=== PATIENT | female | born 1965 | race Caucasian/White ===

== ENCOUNTER 2017-09-14 08:54 | Inpatient (IN) | payer OTHER ==
--- NOTE | 2017-09-14 13:58 | HP ---
COWS - Scale Resting Pulse: 1= [place] 81-100 Sweatin=Flushed/Facial Moisture Restless Observation: 1= Difficult to Sit Still Pupil Size: 0= Normal to Room Light Bone or Joint Aches: 2= Severe Diffuse Aches Runny Nose/ Eye Tearin= Runny Nose/Eyes GI Upset > 30mins: 2= Nausea/Diarrhea Tremor Observation: 2= Slight Tremor Visible Yawning Observation: 2= >3x During Session Anxiety or Irritability: 2=Irritable/Anxious Goose Flesh Skin: 3=Piloerection COWS Score: 19 CIWA Score - CIWA Score Nausea/Vomitin-Mild Nausea/No Vomiting Muscle Tremors: 4-Moderate,w/Arms Extend Anxiety: 4-Mod. Anxious/Guarded Agitation: 4-Moderately Restless Paroxysmal Sweats: 3 Orientation: 0-Oriented Tacttile Disturbances: 0-None Auditory Disturbances: 0-None Visual Disturbances: 0-None Headache: 0-None Present CIWA-Ar Total Score: 16 Admission ROS S - HPI Chief Complaint: I was clean for 22yrs and relapsed and need help. Allergies/Adverse Reactions: Allergies Allergy/AdvReac Type Severity Reaction Status Date / Time No Known Allergies Allergy Verified 09/14/17 13:11 History of Present Illness: pt is a 52yr old female with a long history of being clean from drugs until she recently relapsed using heroin and percocet looking for detox for treatment. Exam Limitations: No Limitations - Ebola screening Have you traveled outside of the country in the last 21 days: No (N) Have you had contact with anyone from an Ebola affected area: No Have you been sick,other than usual withdrawal symptoms: No Do you have a fever: No - Review of Systems Constitutional: Chills, Diaphoresis, Loss of Appetite, Night Sweats, Changes in sleep, Unintentional Wgt. Loss EENT: reports: Tearing, Nose Congestion Respiratory: reports: No Symptoms reported Cardiac: reports: No Symptoms Reported GI: reports: Diarrhea, Nausea, Poor Appetite, Poor Fluid Intake, Indigestion : reports: No Symptoms Reported Musculoskeletal: reports: Back Pain, Muscle Pain Integumentary: reports: Flushing, Sweating Neuro: reports: Headache, Tingling, Tremors Endocrine: reports: Excessive Sweating, Flushing, Intolerance to Cold, Intolerance to Heat Hematology: reports: No Symptoms Reported Psychiatric: reports: Judgement Intact, Mood/Affect Appropiate, Orientated x3, Agitated, Anxious Other Systems: Reviewed and Negative Patient History - Patient Medical History Hx Anemia: No Hx Asthma: No Hx Chronic Obstructive Pulmonary Disease (COPD): Yes (not on meds.) Hx Cancer: No Hx Cardiac Disorders: No Hx Congestive Heart Failure: No Hx Hypertension: No Hx Hypercholesterolemia: No Hx Pacemaker: No HX Cerebrovascular Accident: No Hx Seizures: Yes (drug related seizures last in 2014) Hx Dementia: No Hx Diabetes: No Hx Gastrointestinal Disorders: No Hx Liver Disease: No Hx Genitourinary Disorders: No Hx Sexually Transmitted Disorders: No Hx Renal Disease (ESRD): No Hx Thyroid Disease: No Hx Human Immunodeficiency Virus (HIV): Yes (since 1993) Hx Hepatitis C: No Hx Depression: Yes Hx Suicide Attempt: Yes (Tried to jump out a window 22 years ago.) Hx Bipolar Disorder: Yes Hx Schizophrenia: No Other Medical History: anxiety - Patient Surgical History Past Surgical History: Yes Hx Genitourinary Surgery: Yes (Total hysterectomy Cervical ca in 2013) - PPD History Previous Implant?: Yes Documented Results: Negative w/o proof Implanted On Prior [facility] Admission?: No PPD to be Administered?: Yes - Reproductive History Patient is a Female of Child Bearing Age (11 -55 yrs old): Yes Patient : No - Smoking Cessation Smoking history: Current every day smoker Have you smoked in the past 12 months: Yes Aproximately how many cigarettes per day: 20 Hx Chewing Tobacco Use: No Initiated information on smoking cessation: Yes 'Breaking Loose' booklet given: 09/14/17 - Substance & Tx. History Hx Alcohol Use: No Hx Substance Use: Yes Substance Use Type: Heroin, Opiates Hx Substance Use Treatment: Yes (last detox 1993) - Substances Abused Heroin Route: Inhalation Frequency: Daily Amount used: 4-5 bags Age of first use: 20 Date of Last Use: 09/13/17 percocet Route: Oral Frequency: Daily Amount used: 8-10 20mg pills Age of first use: 41 Date of Last Use: 09/12/17 Family Disease History - Family Disease History Family Disease History: CA: Brother (lung CA), Sister Admission Physical Exam BHS - Vital Signs Vital Signs: Vital Signs - 24 hr 09/14/17 11:13 Temperature 97.9 F Pulse Rate 90 Respiratory 20 Rate Blood Pressure 118/71 - Physical General Appearance: Yes: Appropriately Dressed, Moderate Distress, Thin, Tremorous, Irritable, Sweating, Anxious HEENTM: Yes: Normal Voice, Nasal Congestion, Rhinorrhea Respiratory: Yes: Lungs Clear, Normal Breath Sounds, No Respiratory Distress Neck: Yes: No masses,lesions,Nodules Breast: Yes: Within Normal Limits Cardiology: Yes: Regular Rhythm, Regular Rate, S1, S2 Abdominal: Yes: Normal Bowel Sounds, Non Tender, Soft Genitourinary: Yes: Within Normal Limits Back: Yes: Normal Inspection Musculoskeletal: Yes: Back pain, Muscle Pain Extremities: Yes: Normal Capillary Refill, Non-Tender, Tremors Neurological: Yes: Fully Oriented, Alert, Normal Response Integumentary: Yes: Normal Color, Diaphoresis Lymphatic: Yes: Within Normal Limits - Diagnostic (1) Opioid dependence with withdrawal Current Visit: Yes Status: Chronic (2) Nicotine dependence Current Visit: Yes Status: Chronic Qualifiers: Nicotine product type: cigarettes Substance use status: uncomplicated Qualified Code(s): F17.210 - Nicotine dependence, cigarettes, uncomplicated Cleared for Admission [facility] - Detox or Rehab [facility] Level of Care: Medically Managed Detox Regimen/Protocol: Methadone/Valium [facility] Breath Alcohol Content Breath Alcohol Content: 0 Urine Pregancy Test - Result Urine Test Results: Negative- NO Line Present Urine Drug Screen - Results Drug Screen Negative: No Urine Drug Screen Results: OPI-Opiates, BZO-Benzodiazepines, OXY-Oxycodone
[2017-09-14] MEDS ORDERED: LOPERAMIDE HCL 2 MG CAPSULE PO PRN (14:06)
[2017-09-14] MEDS ORDERED: guaiFENesin/D-METHORPHAN HB 10 ML UNIT-DOSE CUPS PO PRN (14:06)
[2017-09-14] MEDS ORDERED: MAGNESIUM CITRATE 300 ML BOTTLE PO PRN (14:06)
[2017-09-14] MEDS ORDERED: hydrOXYzine PAMOATE 50 MG CAPSULE (FP) PO PRN (14:06)
[2017-09-14] MEDS ORDERED: MENTHOL/PHENOL 1 EACH UD MM PRN (14:06)
[2017-09-14] MEDS ORDERED: P-EPHED 60MG/TRIPROLIDI 2.5MG TABLET PO PRN (14:06)
[2017-09-14] MEDS ORDERED: MAG HYDROX/AL HYDROX/SIMETH 30 ML UNIT-DOSE CUP PO PRN (14:06)
[2017-09-14] MEDS ORDERED: NICOTINE POLACRILEX 2 MG GUM BUC PRN (14:06)
[2017-09-14] MEDS ORDERED: MAGNESIUM HYDROX 2400MG/30ML ORAL SUSPENSION 30 ML CUP PO PRN (14:06)
[2017-09-14] MEDS ORDERED: diazePAM 5 MG TABLET PO ONE (14:13)
[2017-09-14] MEDS ORDERED: METHADONE HCL 10 MG TABLET (FOR DETOX USE ONLY) PO ONE ×2 (14:17→23:00)
[2017-09-14] MEDS: diazePAM 5 MG TABLET PO PRN (19:54)
[2017-09-14] MEDS: THIAMINE HCL 100 MG TABLET (FP) PO SCH (22:17)
[2017-09-14] MEDS: PREGABALIN 100 MG CAPSULE PO SCH (22:17)
[2017-09-14] MEDS: diazePAM 5 MG TABLET PO SCH (22:17)
[2017-09-14 22:57] LABS: URINE APPEARANCE CLOUDY; URINE BILIRUBIN NEGATIVE (NEGATIVE); URINE BLOOD NEGATIVE (NEGATIVE); URINE COLOR AMBER; URINE GLUCOSE (UA) NEGATIVE (NEGATIVE); URINE KETONE NEGATIVE (NEGATIVE); URINE LEUK ESTERASE TRACE (NEGATIVE); URINE NITRITE NEGATIVE (NEGATIVE); URINE PROTEIN NEGATIVE (NEGATIVE); URINE UROBILINOGEN NEGATIVE mg/dL (0.2-1.0)
[2017-09-14 23:08] LABS: EPI CELLS RARE /HPF (FEW); URINE MUCUS RARE
[2017-09-15] MEDS: diazePAM 5 MG TABLET PO SCH ×3 (06:30→22:09)
[2017-09-15] MEDS: DARUNAVIR ETHANOLATE 800 MG TAB PO SCH (08:07)
[2017-09-15] MEDS: RITONAVIR 100 MG TABLET PO SCH (08:08)
[2017-09-15 09:56] LABS: BASO % 0.5 % (0-2.0); EOS % 1.3 % (0-4.5); HEMATOCRIT 39.8 % (32.4-45.2); LYMPH % 38.4 % (8-40); MCH 30.7 pg (25.7-33.7); MCHC 32.7 g/dl (32.0-36.0); MEAN CELL VOLUME 93.9 fl (80-96); MEAN PLT VOLUME 11.4 fl (7.5-11.1); MONO % 10.6 % (3.8-10.2); NEUT % 49.2 % (42.8-82.8); PLATELET COUNT 169 K/MM3 (134-434); RBC 4.23 M/mm3 (3.60-5.2); RDW 14.4 % (11.6-15.6)
[2017-09-15 09:59] LABS: ALBUMIN 3.6 g/dl (3.4-5.0); ANION GAP 5 (8-16); BLOOD UREA NITROGEN 14 mg/dL (7-18); CALCIUM 8.3 mg/dL (8.5-10.1); CHLORIDE 107 mmol/L (98-107); CO2 29 mmol/L (21-32); GLUCOSE,RANDOM 131 mg/dL (74-106); POTASSIUM 3.6 mmol/L (3.5-5.1); SODIUM 141 mmol/L (136-145)
[2017-09-15] MEDS ORDERED: DARUNAVIR ETHANOLATE 800 MG TAB PO SCH (10:00)
[2017-09-15] MEDS ORDERED: METHADONE HCL 10 MG TABLET (FOR DETOX USE ONLY) PO SCH (10:00)
[2017-09-15 10:02] LABS: ALK PHOS 95 U/L (45-117); BILIRUBIN,TOTAL 0.3 mg/dL (0.2-1.0); SGOT/AST 22 U/L (15-37); SGPT/ALT 27 U/L (12-78); TOT PROT 7.6 g/dl (6.4-8.2)
[2017-09-15 10:24] LABS: INR 1.01 (0.82-1.09); PROTHROMBIN TIME (PATIENT) 11.4 SEC (9.98-11.88)
[2017-09-15] MEDS: diazePAM 5 MG TABLET PO PRN ×2 (10:44→17:42)
[2017-09-15] MEDS: PRENATAL VITAMINS W/ FOLIC ACID TABLET (FP) PO SCH (10:44)
[2017-09-15] MEDS: HYDROXYCHLOROQUINE SO4 200 MG TABLET (FP) PO SCH (10:44)
[2017-09-15] MEDS: NICOTINE 21 MG/24 HOURS TOPICAL PATCH TD SCH (10:45)
[2017-09-15] MEDS: PREGABALIN 100 MG CAPSULE PO SCH ×2 (10:46→22:09)
[2017-09-15] MEDS: EMTRICITABINE 200MG/TENOFOVIR 300MG PO SCH (10:46)
--- NOTE | 2017-09-15 11:44 | PN ---
S CIWA - CIWA Score Nausea/Vomitin-Mild Nausea/No Vomiting Muscle Tremors: 3 Anxiety: 3 Agitation: 3 Paroxysmal Sweats: 3 Orientation: 1-Uncertain about Date Tacttile Disturbances: 0-None Auditory Disturbances: 0-None Visual Disturbances: 0-None Headache: 0-None Present CIWA-Ar Total Score: 14 BHS COWS - Scale Resting Pulse: 0= [place] 80 or Below Sweatin=Flushed/Facial Moisture Restless Observation: 1= Difficult to Sit Still Pupil Size: 0= Normal to Room Light Bone or Joint Aches: 1= Mild Discomfort Runny Nose/ Eye Tearin= Runny Nose/Eyes GI Upset > 30mins: 2= Nausea/Diarrhea Tremor Observation of Outstretched Hands: 2= Slight Tremor Visible Yawning Observation: 1= 1-2x During Session Anxiety or Irritability: 2=Irritable/Anxious Goose Flesh Skin: 0=Smooth Skin COWS Score: 13 S Progress Note (SOAP) Subjective: Anxiety,tremors,sweating,interrupted sleep,restless Objective: 09/15/17 11:41 Vital Signs - 8 hr 09/15/17 09/15/17 06:06 10:16 Temperature 97.9 F 97.3 F L Pulse Rate 61 63 Respiratory 16 18 Rate Blood Pressure 135/88 134/86 Laboratory Tests 09/14/17 09/15/17 09/15/17 Unknown 06:10 06:10 WBC 6.0 RBC 4.23 Hgb 13.0 Hct 39.8 MCV 93.9 MCH 30.7 MCHC 32.7 RDW 14.4 Plt Count 169 MPV 11.4 H Neutrophils % 49.2 Lymphocytes % 38.4 Monocytes % 10.6 H Eosinophils % 1.3 Basophils % 0.5 PT with INR INR Sodium 141 Potassium 3.6 Chloride 107 Carbon Dioxide 29 Anion Gap 5 L BUN 14 Creatinine 1.0 Creat Clearance w eGFR 57.78 Random Glucose 131 H Calcium 8.3 L Total Bilirubin 0.3 AST 22 ALT 27 Alkaline Phosphatase 95 Total Protein 7.6 Albumin 3.6 Urine Color Priscila Urine Appearance Cloudy Urine pH 5.0 Ur Specific [place] 1.024 Urine Protein Negative Urine Glucose (UA) Negative Urine Ketones Negative Urine Blood Negative Urine Nitrite Negative Urine Bilirubin Negative Urine Urobilinogen Negative Ur Leukocyte Esterase Trace Urine WBC (Auto) 14 Urine RBC (Auto) 2 Ur Epithelial Cells Rare Urine Mucus Rare 09/15/17 07:50 WBC RBC Hgb Hct MCV MCH MCHC RDW Plt Count MPV Neutrophils % Lymphocytes % Monocytes % Eosinophils % Basophils % PT with INR 11.40 INR 1.01 Sodium Potassium Chloride Carbon Dioxide Anion Gap BUN Creatinine Creat Clearance w eGFR Random Glucose Calcium Total Bilirubin AST ALT Alkaline Phosphatase Total Protein Albumin Urine Color Urine Appearance Urine pH Ur Specific [place] Urine Protein Urine Glucose (UA) Urine Ketones Urine Blood Urine Nitrite Urine Bilirubin Urine Urobilinogen Ur Leukocyte Esterase Urine WBC (Auto) Urine RBC (Auto) Ur Epithelial Cells Urine Mucus labs noted Assessment: 09/15/17 11:44 Withdrawal sx. Plan: Continue detox
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
[2017-09-15] MEDS: hydrOXYzine PAMOATE 50 MG CAPSULE (FP) PO PRN (19:57)
[2017-09-15] MEDS: THIAMINE HCL 100 MG TABLET (FP) PO SCH (22:09)
[2017-09-16] MEDS: diazePAM 5 MG TABLET PO PRN (07:04)
--- NOTE | 2017-09-16 09:57 | PN ---
[facility] CIWA - CIWA Score Nausea/Vomitin-No Nausea/No Vomiting Muscle Tremors: 3 Anxiety: 3 Agitation: 3 Paroxysmal Sweats: 1-Minimal Palms Moist Orientation: 0-Oriented Tacttile Disturbances: 0-None Auditory Disturbances: 0-None Visual Disturbances: 0-None Headache: 0-None Present CIWA-Ar Total Score: 10 BHS COWS - Scale Resting Pulse: 0= [place] 80 or Below Sweatin= Chills/Flushing Restless Observation: 1= Difficult to Sit Still Pupil Size: 0= Normal to Room Light Bone or Joint Aches: 1= Mild Discomfort Runny Nose/ Eye Tearin= Runny Nose/Eyes GI Upset > 30mins: 1= Stomach Cramp Tremor Observation of Outstretched Hands: 2= Slight Tremor Visible Yawning Observation: 0= None Anxiety or Irritability: 2=Irritable/Anxious Goose Flesh Skin: 0=Smooth Skin COWS Score: 10 S Progress Note (SOAP) Subjective: tremor anxiety restlessness general body ache Objective: 09/16/17 09:56 Vital Signs Temperature 97.8 F 09/16/17 06:00 Pulse Rate 65 09/16/17 06:00 Respiratory Rate 16 09/16/17 06:00 Blood Pressure 122/81 09/16/17 06:00 O2 Sat by Pulse Oximetry (%) Laboratory Last Values WBC 6.0 K/mm3 (4.0-10.0) 09/15/17 06:10 RBC 4.23 M/mm3 (3.60-5.2) 09/15/17 06:10 Hgb 13.0 GM/dL (10.7-15.3) 09/15/17 06:10 Hct 39.8 % (32.4-45.2) 09/15/17 06:10 MCV 93.9 fl (80-96) 09/15/17 06:10 MCH 30.7 pg (25.7-33.7) 09/15/17 06:10 MCHC 32.7 g/dl (32.0-36.0) 09/15/17 06:10 RDW 14.4 % (11.6-15.6) 09/15/17 06:10 Plt Count 169 K/MM3 (134-434) 09/15/17 06:10 MPV 11.4 fl (7.5-11.1) H 09/15/17 06:10 Neutrophils % 49.2 % (42.8-82.8) 09/15/17 06:10 Lymphocytes % 38.4 % (8-40) 09/15/17 06:10 Monocytes % 10.6 % (3.8-10.2) H 09/15/17 06:10 Eosinophils % 1.3 % (0-4.5) 09/15/17 06:10 Basophils % 0.5 % (0-2.0) 09/15/17 06:10 PT with INR 11.40 SEC (9.98-11.88) 09/15/17 07:50 INR 1.01 (0.82-1.09) 09/15/17 07:50 Sodium 141 mmol/L (136-145) 09/15/17 06:10 Potassium 3.6 mmol/L (3.5-5.1) 09/15/17 06:10 Chloride 107 mmol/L (98-107) 09/15/17 06:10 Carbon Dioxide 29 mmol/L (21-32) 09/15/17 06:10 Anion Gap 5 (8-16) L 09/15/17 06:10 BUN 14 mg/dL (7-18) 09/15/17 06:10 Creatinine 1.0 mg/dL (0.55-1.02) 09/15/17 06:10 Creat Clearance w eGFR 57.78 (>60) 09/15/17 06:10 Random Glucose 131 mg/dL (74-106) H 09/15/17 06:10 Calcium 8.3 mg/dL (8.5-10.1) L 09/15/17 06:10 Total Bilirubin 0.3 mg/dL (0.2-1.0) 09/15/17 06:10 AST 22 U/L (15-37) 09/15/17 06:10 ALT 27 U/L (12-78) 09/15/17 06:10 Alkaline Phosphatase 95 U/L (45-117) 09/15/17 06:10 Total Protein 7.6 g/dl (6.4-8.2) 09/15/17 06:10 Albumin 3.6 g/dl (3.4-5.0) 09/15/17 06:10 Urine Color Priscila 09/14/17 Unknown Urine Appearance Cloudy 09/14/17 Unknown Urine pH 5.0 (5.0-8.0) 09/14/17 Unknown Ur Specific [place] 1.024 (1.001-1.035) 09/14/17 Unknown Urine Protein Negative (NEGATIVE) 09/14/17 Unknown Urine Glucose (UA) Negative (NEGATIVE) 09/14/17 Unknown Urine Ketones Negative (NEGATIVE) 09/14/17 Unknown Urine Blood Negative (NEGATIVE) 09/14/17 Unknown Urine Nitrite Negative (NEGATIVE) 09/14/17 Unknown Urine Bilirubin Negative (NEGATIVE) 09/14/17 Unknown Urine Urobilinogen Negative mg/dL (0.2-1.0) 09/14/17 Unknown Ur Leukocyte Esterase Trace (NEGATIVE) 09/14/17 Unknown Urine WBC (Auto) 14 /hpf (3-5) 09/14/17 Unknown Urine RBC (Auto) 2 /hpf (0-3) 09/14/17 Unknown Ur Epithelial Cells Rare /HPF (FEW) 09/14/17 Unknown Urine Mucus Rare 09/14/17 Unknown RPR Titer Nonreactive (NONREACTIVE) 09/15/17 06:10 lab noted Assessment: 09/16/17 09:56 withdrawal sx Plan: continue detox
[2017-09-16] MEDS: hydrOXYzine PAMOATE 50 MG CAPSULE (FP) PO PRN ×2 (10:17→18:11)
[2017-09-16] MEDS: METHADONE HCL 5 MG TABLET (FOR DETOX USE ONLY) PO SCH (10:17)
[2017-09-16] MEDS: PRENATAL VITAMINS W/ FOLIC ACID TABLET (FP) PO SCH (10:18)
[2017-09-16] MEDS: diazePAM 5 MG TABLET PO SCH ×2 (10:18→22:28)
[2017-09-16] MEDS: IBUPROFEN 400 MG TABLET (FP) PO PRN ×2 (10:18→18:11)
[2017-09-16] MEDS: PREGABALIN 100 MG CAPSULE PO SCH ×2 (10:18→22:28)
[2017-09-16] MEDS: NICOTINE 21 MG/24 HOURS TOPICAL PATCH TD SCH (10:19)
[2017-09-16] MEDS: RITONAVIR 100 MG TABLET PO SCH (10:20)
[2017-09-16] MEDS: DARUNAVIR ETHANOLATE 800 MG TAB PO SCH (10:20)
[2017-09-16] MEDS: HYDROXYCHLOROQUINE SO4 200 MG TABLET (FP) PO SCH (10:20)
[2017-09-16] MEDS: EMTRICITABINE 200MG/TENOFOVIR 300MG PO SCH (10:21)
--- NOTE | 2017-09-16 12:59 | EKG ---
Test Reason : Blood Pressure : / mmHG Vent. Rate : 065 BPM Atrial Rate : 065 BPM P-R Int : 180 ms QRS Dur : 096 ms QT Int : 426 ms P-R-T Axes : 072 067 067 degrees QTc Int : 443 ms NORMAL SINUS RHYTHM MODERATE VOLTAGE CRITERIA FOR LVH, MAY BE NORMAL VARIANT BORDERLINE ECG WHEN COMPARED WITH ECG OF 14-SEP-2017 15:35, LEFT POSTERIOR FASCICULAR BLOCK IS NO LONGER PRESENT ST NO LONGER DEPRESSED IN INFERIOR LEADS T WAVE INVERSION NO LONGER EVIDENT IN INFERIOR LEADS Confirmed by Jaguar Pozo ([id number]) on 09/16/2017 12:58:37 PM Referred By: Confirmed By:Jaguar Pozo
[2017-09-16] MEDS: THIAMINE HCL 100 MG TABLET (FP) PO SCH (22:28)
[2017-09-17] MEDS: diazePAM 5 MG TABLET PO PRN (05:49)
[2017-09-17] MEDS: IBUPROFEN 400 MG TABLET (FP) PO PRN (05:49)
[2017-09-17] MEDS: METHADONE HCL 5 MG TABLET (FOR DETOX USE ONLY) PO SCH (09:19)
[2017-09-17] MEDS: RITONAVIR 100 MG TABLET PO SCH (09:20)
[2017-09-17] MEDS: HYDROXYCHLOROQUINE SO4 200 MG TABLET (FP) PO SCH (09:20)
[2017-09-17] MEDS: DARUNAVIR ETHANOLATE 800 MG TAB PO SCH (09:20)
[2017-09-17] MEDS: EMTRICITABINE 200MG/TENOFOVIR 300MG PO SCH (09:21)
[2017-09-17] MEDS: diazePAM 5 MG TABLET PO SCH ×2 (09:21→22:14)
--- NOTE | 2017-09-17 10:06 | PN ---
BHS Progress Note (SOAP) Subjective: anxious tearful co aches Objective: 09/17/17 10:05 Laboratory Tests 09/14/17 09/15/17 09/15/17 Unknown 06:10 06:10 WBC RBC Hgb Hct MCV MCH MCHC RDW Plt Count MPV Neutrophils % Lymphocytes % Monocytes % Eosinophils % Basophils % PT with INR INR Sodium 141 Potassium 3.6 Chloride 107 Carbon Dioxide 29 Anion Gap 5 L BUN 14 Creatinine 1.0 Creat Clearance w eGFR 57.78 Random Glucose 131 H Calcium 8.3 L Total Bilirubin 0.3 AST 22 ALT 27 Alkaline Phosphatase 95 Total Protein 7.6 Albumin 3.6 Urine Color Priscila Urine Appearance Cloudy Urine pH 5.0 Ur Specific [place] 1.024 Urine Protein Negative Urine Glucose (UA) Negative Urine Ketones Negative Urine Blood Negative Urine Nitrite Negative Urine Bilirubin Negative Urine Urobilinogen Negative Ur Leukocyte Esterase Trace Urine WBC (Auto) 14 Urine RBC (Auto) 2 Ur Epithelial Cells Rare Urine Mucus Rare RPR Titer Nonreactive 09/15/17 09/15/17 06:10 07:50 WBC 6.0 RBC 4.23 Hgb 13.0 Hct 39.8 MCV 93.9 MCH 30.7 MCHC 32.7 RDW 14.4 Plt Count 169 MPV 11.4 H Neutrophils % 49.2 Lymphocytes % 38.4 Monocytes % 10.6 H Eosinophils % 1.3 Basophils % 0.5 PT with INR 11.40 INR 1.01 Sodium Potassium Chloride Carbon Dioxide Anion Gap BUN Creatinine Creat Clearance w eGFR Random Glucose Calcium Total Bilirubin AST ALT Alkaline Phosphatase Total Protein Albumin Urine Color Urine Appearance Urine pH Ur Specific [place] Urine Protein Urine Glucose (UA) Urine Ketones Urine Blood Urine Nitrite Urine Bilirubin Urine Urobilinogen Ur Leukocyte Esterase Urine WBC (Auto) Urine RBC (Auto) Ur Epithelial Cells Urine Mucus RPR Titer Vital Signs - 24 hr 09/16/17 09/16/17 09/16/17 10:19 14:11 17:24 Temperature 98.2 F 98.1 F 98.4 F Pulse Rate 74 76 69 Respiratory 18 18 18 Rate Blood Pressure 123/74 123/61 113/67 09/16/17 09/17/17 09/17/17 23:06 00:29 06:20 Temperature 97.7 F 98.2 F Pulse Rate 69 73 Respiratory 18 18 19 Rate Blood Pressure 120/74 142/90 09/17/17 09/17/17 09:18 09:28 Temperature 98.1 F Pulse Rate 73 Respiratory 16 Rate Blood Pressure 122/51 112/62 Assessment: 09/17/17 10:05 opiate dep withdrawal Plan: cont detox protocol
[2017-09-17] MEDS: PRENATAL VITAMINS W/ FOLIC ACID TABLET (FP) PO SCH (11:46)
[2017-09-17] MEDS: NICOTINE 21 MG/24 HOURS TOPICAL PATCH TD SCH (11:46)
[2017-09-17] MEDS: PREGABALIN 100 MG CAPSULE PO SCH ×2 (11:46→22:14)
--- NOTE | 2017-09-17 21:58 | EKG ---
Test Reason : Blood Pressure : / mmHG Vent. Rate : 080 BPM Atrial Rate : 080 BPM P-R Int : 162 ms QRS Dur : 090 ms QT Int : 404 ms P-R-T Axes : 000 130 193 degrees QTc Int : 465 ms NORMAL SINUS RHYTHM LEFT POSTERIOR FASCICULAR BLOCK MINIMAL VOLTAGE CRITERIA FOR LVH, MAY BE NORMAL VARIANT PROLONGED QT ABNORMAL ECG NO PREVIOUS ECGS AVAILABLE Confirmed by RADHAMES WEINBERG MD ([id number]) on 09/17/2017 9:57:47 PM Referred By: Confirmed By:RADHAMES WEINBERG MD
[2017-09-17] MEDS: THIAMINE HCL 100 MG TABLET (FP) PO SCH (22:14)
[2017-09-18] MEDS: hydrOXYzine PAMOATE 50 MG CAPSULE (FP) PO PRN ×3 (01:19→15:11)
[2017-09-18] MEDS: ACETAMINOPHEN 325 MG TABLET (FP) PO PRN (07:44)
[2017-09-18] MEDS ORDERED: diazePAM 5 MG TABLET PO SCH (10:00)
[2017-09-18] MEDS ORDERED: METHADONE HCL 10 MG TABLET (FOR DETOX USE ONLY) PO SCH (10:00)
[2017-09-18] MEDS: NICOTINE 21 MG/24 HOURS TOPICAL PATCH TD SCH ×2 (10:00→10:31)
[2017-09-18] MEDS: PRENATAL VITAMINS W/ FOLIC ACID TABLET (FP) PO SCH (10:29)
[2017-09-18] MEDS: DARUNAVIR ETHANOLATE 800 MG TAB PO SCH (10:30)
[2017-09-18] MEDS: HYDROXYCHLOROQUINE SO4 200 MG TABLET (FP) PO SCH (10:30)
[2017-09-18] MEDS: PREGABALIN 100 MG CAPSULE PO SCH ×2 (10:30→22:23)
[2017-09-18] MEDS: RITONAVIR 100 MG TABLET PO SCH (10:31)
[2017-09-18] MEDS: EMTRICITABINE 200MG/TENOFOVIR 300MG PO SCH (10:48)
--- NOTE | 2017-09-18 11:28 | PN ---
BHS Progress Note (SOAP) Subjective: ONGOING SX INCLUDE POOR SLEEP, GEN DISCOMFORT, ACHINESS, SADNESS REQ TO SEE PSYCH Objective: 09/18/17 11:27 Laboratory Tests 09/14/17 09/15/17 09/15/17 Unknown 06:10 06:10 WBC RBC Hgb Hct MCV MCH MCHC RDW Plt Count MPV Neutrophils % Lymphocytes % Monocytes % Eosinophils % Basophils % PT with INR INR Sodium 141 Potassium 3.6 Chloride 107 Carbon Dioxide 29 Anion Gap 5 L BUN 14 Creatinine 1.0 Creat Clearance w eGFR 57.78 Random Glucose 131 H Calcium 8.3 L Total Bilirubin 0.3 AST 22 ALT 27 Alkaline Phosphatase 95 Total Protein 7.6 Albumin 3.6 Urine Color Priscila Urine Appearance Cloudy Urine pH 5.0 Ur Specific [place] 1.024 Urine Protein Negative Urine Glucose (UA) Negative Urine Ketones Negative Urine Blood Negative Urine Nitrite Negative Urine Bilirubin Negative Urine Urobilinogen Negative Ur Leukocyte Esterase Trace Urine WBC (Auto) 14 Urine RBC (Auto) 2 Ur Epithelial Cells Rare Urine Mucus Rare RPR Titer Nonreactive 09/15/17 09/15/17 06:10 07:50 WBC 6.0 RBC 4.23 Hgb 13.0 Hct 39.8 MCV 93.9 MCH 30.7 MCHC 32.7 RDW 14.4 Plt Count 169 MPV 11.4 H Neutrophils % 49.2 Lymphocytes % 38.4 Monocytes % 10.6 H Eosinophils % 1.3 Basophils % 0.5 PT with INR 11.40 INR 1.01 Sodium Potassium Chloride Carbon Dioxide Anion Gap BUN Creatinine Creat Clearance w eGFR Random Glucose Calcium Total Bilirubin AST ALT Alkaline Phosphatase Total Protein Albumin Urine Color Urine Appearance Urine pH Ur Specific [place] Urine Protein Urine Glucose (UA) Urine Ketones Urine Blood Urine Nitrite Urine Bilirubin Urine Urobilinogen Ur Leukocyte Esterase Urine WBC (Auto) Urine RBC (Auto) Ur Epithelial Cells Urine Mucus RPR Titer Vital Signs - 24 hr 09/17/17 09/17/17 09/17/17 14:32 17:52 22:55 Temperature 98.1 F 97.9 F 98.6 F Pulse Rate 79 81 74 Respiratory 18 20 18 Rate Blood Pressure 124/79 112/75 113/70 09/18/17 09/18/17 09/18/17 00:30 03:30 06:00 Temperature 97.7 F Pulse Rate 72 Respiratory 18 18 18 Rate Blood Pressure 123/77 09/18/17 09:28 Temperature 96.8 F L Pulse Rate 80 Respiratory 16 Rate Blood Pressure 119/70 Assessment: 09/18/17 11:27 ONGOING WITHDRAWAL DEPRESSION Plan: CONTINUE DETOX PROTOCOL PSYCH EVAL RE ENTERED
--- NOTE | 2017-09-18 16:08 | PN ---
Psychiatric Progress Note Vital Signs: Vital Signs Period Temp Pulse Resp BP Sys/Rodriguez Pulse Ox Last 24 Hr 96.8 F-98.6 F 72-81 16-20 112-123/70-77 Date of Session: 09/18/17 Chief Complaint:: [facility] HPI: Pt. admitted to [facility] detox for opiate withdrawal/dependence. Pt. currently c/ o increase anxiety and difficulty sleeping. ROS: Unremarkable Current Medications: Active Medications Generic Name Dose Route Start Last Admin Trade Name Freq PRN Reason Stop Dose Admin Acetaminophen 650 mg 09/14/17 14:06 09/18/17 07:44 Tylenol - PO 650 mg Q4H PRN Administration FEVER Al Hydroxide/Mg Hydroxide 30 ml 09/14/17 14:06 Mylanta Oral Suspension - PO Q6H PRN DYSPEPSIA Bupropion HCl 150 mg 09/15/17 11:15 09/18/17 10:31 Wellbutrin Xl - PO 150 mg DAILY WALLACE Administration Darunavir 800 mg 09/15/17 08:00 09/18/17 10:30 Prezista - PO 800 mg DAILY@0800 WALLACE Administration Emtricitabine/Tenofovir 1 tab 09/15/17 10:00 09/18/17 10:48 Truvada PO 1 tab DAILY WALLACE Administration Eucalyptus/Menthol/Phenol/Sorbitol 1 each 09/14/17 14:06 Cepastat Lozenge - MM Q4H PRN SORE THROAT Guaifenesin 10 ml 09/14/17 14:06 Robitussin Dm - PO Q6H PRN COUGH Hydroxychloroquine Sulfate 400 mg 09/15/17 10:00 09/18/17 10:30 Plaquenil - PO 400 mg DAILY WALLACE Administration Hydroxyzine Pamoate 50 mg 09/15/17 15:42 09/18/17 15:11 Vistaril - PO 50 mg Q6H PRN Administration ANXIETY Ibuprofen 400 mg 09/14/17 14:06 09/17/17 05:49 Motrin - PO 400 mg Q6H PRN Administration PAIN LEVEL 4-6 Loperamide HCl 4 mg 09/14/17 14:06 09/14/17 15:21 Imodium - PO 4 mg Q6H PRN Administration DIARRHEA Magnesium Citrate 300 ml 09/14/17 14:06 Citroma - PO Q48H PRN CONSTIPATION Magnesium Hydroxide 30 ml 09/14/17 14:06 Milk Of Magnesia - PO DAILY PRN CONSTIPATION Methadone HCl 5 mg 09/19/17 06:00 Dolophine - PO 09/19/17 06:01 DAILY@0600 WALLACE Nicotine 21 mg 09/15/17 10:00 09/18/17 10:00 Nicoderm Patch - TD Not Given DAILY WALLACE Nicotine Polacrilex 2 mg 09/14/17 14:06 Nicorette Gum - BUC Q2H PRN NICOTINE REPLACEMENT RX Pregabalin 300 mg 09/14/17 22:00 09/18/17 10:30 Lyrica - PO 09/21/17 21:59 300 mg BID WALLACE Administration Multivit/Folic Acid/Iron 1 tab 09/15/17 10:00 09/18/17 10:29 Vitamins (Sjr) - PO 1 tab DAILY WALLACE Administration Pseudoephedrine/Triprolidine 1 combo 09/14/17 14:06 Actifed - PO TID PRN NASAL CONGESTION Ritonavir 100 mg 09/15/17 08:00 09/18/17 10:31 Norvir - PO 100 mg DAILY@0800 WALLACE Administration Thiamine HCl 100 mg 09/14/17 22:00 09/17/17 22:14 Vitamin B1 - PO 100 mg HS WALLACE Administration Medication(s) Change(s): Yes. Will add seroquel 50mg qhs Current Side Effect: No Lab tests ordered: No Lab tests reviewed: Yes Provider note:: Handbook Writer approached patient concerning psychiatric reconsultation. Patient tearful and anxious concerning her discharge planning. Pt. anxious about possibly getting discharge from [facility] after informed by staff that she is on the list for rehab at [facility]. Pt. encouraged to remain positive. Psychoeducation provided. Pt. encouraged to take the medication vistaril for anxiety. Pt. also requesting a sleep aid. Pt. reports being prescribed seroquel 200mg qhs in February of 2017 but refused restarting seroquel several days ago. Pt. now agreeable to restart seroquel 50mg qhs for insomnia. Psychopharmacotherapy provided. Pt. satisified and receptive to feedback. Will continue to monitor. Total face to face time:: 25 Mental Status Exam - Mental Status Exam Alert and Oriented to: Time, Place, Person Cognitive Function: Good Patient Appearance: Well Groomed Mood: Anxious Affect: Mood Congruent Patient Behavior: Crying, Cooperative Speech Pattern: Appropriate, Delayed Voice Loudness: Normal Thought Process: Goal Oriented Thought Disorder: Not Present Hallucinations: Denies Suicidal Ideation: Denies Homicidal Ideation: Denies Insight/Judgement: Poor Sleep: Poorly Appetite: Fair Muscle strength/Tone: Normal Gait/Station: Normal Psychiatric Treatment Plan - Problem List (1) Opioid dependence with withdrawal Current Visit: Yes (2) MDD (major depressive disorder) Current Visit: Yes Comment: Self reports. (3) Nicotine dependence Current Visit: Yes Qualifiers: Nicotine product type: cigarettes Substance use status: uncomplicated Qualified Code(s): F17.210 - Nicotine dependence, cigarettes, uncomplicated (4) Anxiety disorder Current Visit: Yes (5) Insomnia Current Visit: Yes
[2017-09-18] MEDS: THIAMINE HCL 100 MG TABLET (FP) PO SCH (22:23)
[2017-09-18] MEDS: QUEtiapine FUMARATE 50 MG TABLET PO SCH (22:23)
[2017-09-19] MEDS: hydrOXYzine PAMOATE 50 MG CAPSULE (FP) PO PRN ×2 (01:47→10:35)
[2017-09-19] MEDS ORDERED: METHADONE HCL 5 MG TABLET (FOR DETOX USE ONLY) PO SCH (06:00)
--- NOTE | 2017-09-19 08:36 | DS ---
[facility] Detox Discharge Summary Admission Date: 09/14/17 Discharge Date: 09/19/17 - History Present History: Opioid Dependence - Physical Exam Results Vital Signs: Vital Signs Temperature 98.2 F 09/19/17 06:00 Pulse Rate 86 09/19/17 06:00 Respiratory Rate 16 09/19/17 06:00 Blood Pressure 107/64 09/19/17 06:00 O2 Sat by Pulse Oximetry (%) - Treatment Hospital Course: Detox Protocol Followed, Detoxed Safely, Responded well, Discharged Condition Good - Medication Discharge Medications: Ambulatory Orders Bupropion HCl [Bupropion HCl Sr] 150 mg PO DAILY 09/14/17 Clonazepam [Klonopin -] 0.5 mg PO BID 09/14/17 Darunavir Ethanolate [Prezista -] 800 mg PO DAILY 09/14/17 Emtricitabine/Tenofovir [Truvada] 1 tab PO DAILY 09/14/17 Hydroxychloroquine Sulfate [Plaquenil] 400 mg PO DAILY 09/14/17 Loperamide HCl [Loperamide] 2 mg PO QID PRN 09/14/17 Pregabalin [Lyrica -] 300 mg PO BID 09/14/17 Ritonavir [Norvir -] 100 mg PO DAILY 09/14/17 Tramadol HCl [Ultram] 50 mg PO Q6H PRN 09/14/17 - Diagnosis (1) Insomnia Current Visit: Yes Status: Chronic (2) Opioid dependence with withdrawal Current Visit: Yes Status: Chronic (3) Anxiety disorder Current Visit: Yes Status: Chronic Qualifiers: Anxiety disorder type: unspecified anxiety disorder Qualified Code(s): F41.9 - Anxiety disorder, unspecified (4) Nicotine dependence Current Visit: Yes Status: Chronic Qualifiers: Nicotine product type: cigarettes Substance use status: uncomplicated Qualified Code(s): F17.210 - Nicotine dependence, cigarettes, uncomplicated (5) HIV (human immunodeficiency virus infection) Current Visit: Yes Status: Chronic - AMA Did Patient Leave Against Medical Advice: No
[2017-09-19] MEDS: PREGABALIN 100 MG CAPSULE PO SCH ×2 (10:35→21:14)
[2017-09-19] MEDS: PRENATAL VITAMINS W/ FOLIC ACID TABLET (FP) PO SCH (10:35)
[2017-09-19] MEDS: HYDROXYCHLOROQUINE SO4 200 MG TABLET (FP) PO SCH (10:36)
[2017-09-19] MEDS: EMTRICITABINE 200MG/TENOFOVIR 300MG PO SCH (10:36)
[2017-09-19] MEDS: RITONAVIR 100 MG TABLET PO SCH (10:36)
[2017-09-19] MEDS: NICOTINE 21 MG/24 HOURS TOPICAL PATCH TD SCH (10:36)
[2017-09-19] MEDS: DARUNAVIR ETHANOLATE 800 MG TAB PO SCH (10:36)
[2017-09-19 14:11] VITALS: BMI 20.7
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
[2017-09-19] MEDS: QUEtiapine FUMARATE 50 MG TABLET PO SCH (21:14)
[2017-09-19] MEDS: THIAMINE HCL 100 MG TABLET (FP) PO SCH (21:14)
[2017-09-20] MEDS ORDERED: PT OWN MED DRAWER 7, Y5N ONE ×2 (09:07→10:57)
[2017-09-20] MEDS: PRENATAL VITAMINS W/ FOLIC ACID TABLET (FP) PO SCH (09:38)
[2017-09-20] MEDS: PREGABALIN 100 MG CAPSULE PO SCH ×2 (09:38→21:17)
[2017-09-20] MEDS: ACETAMINOPHEN 325 MG TABLET (FP) PO PRN (09:39)
[2017-09-20] MEDS: NICOTINE 21 MG/24 HOURS TOPICAL PATCH TD SCH (09:41)
[2017-09-20] MEDS: EMTRICITABINE 200MG/TENOFOVIR 300MG PO SCH (10:00)
[2017-09-20] MEDS: RITONAVIR 100 MG TABLET PO SCH (10:00)
[2017-09-20] MEDS: HYDROXYCHLOROQUINE SO4 200 MG TABLET (FP) PO SCH (10:00)
[2017-09-20] MEDS: DARUNAVIR ETHANOLATE 800 MG TAB PO SCH (10:00)
[2017-09-20] MEDS: hydrOXYzine PAMOATE 50 MG CAPSULE (FP) PO PRN ×2 (10:49→18:44)
[2017-09-20] MEDS ORDERED: FLU VACCINE QUAD 60 MCG/0.5 ML (MDV 17-18) IM ONE (12:00)
--- NOTE | 2017-09-20 13:09 | PN ---
[facility] Progress Note Note: new to rehab co withdrawal sx cows=[id number] will add clonidine x 1 neurontin 300mg tid flexeril 5mg tid prn
[2017-09-20] MEDS ORDERED: cloNIDine HCL 0.1 MG TABLET PO ONE (13:35)
[2017-09-20] MEDS: GABAPENTIN 300 MG CAPSULE (FP) PO SCH ×2 (14:15→21:18)
[2017-09-20] MEDS: CYCLOBENZAPRINE HCL 5 MG TABLET PO SCH ×2 (14:15→21:15)
[2017-09-20] MEDS: QUEtiapine FUMARATE 50 MG TABLET PO SCH (21:15)
[2017-09-20] MEDS: THIAMINE HCL 100 MG TABLET (FP) PO SCH (21:15)
[2017-09-21] MEDS: CYCLOBENZAPRINE HCL 5 MG TABLET PO SCH ×3 (06:37→21:14)
[2017-09-21] MEDS: GABAPENTIN 300 MG CAPSULE (FP) PO SCH ×2 (06:37→13:14)
[2017-09-21] MEDS ORDERED: PT OWN MED DRAWER 7, Y5N ONE (07:09)
[2017-09-21] MEDS: DARUNAVIR ETHANOLATE 800 MG TAB PO SCH (08:09)
[2017-09-21] MEDS: PRENATAL VITAMINS W/ FOLIC ACID TABLET (FP) PO SCH (10:04)
[2017-09-21] MEDS: PREGABALIN 100 MG CAPSULE PO SCH (10:04)
[2017-09-21] MEDS: HYDROXYCHLOROQUINE SO4 200 MG TABLET (FP) PO SCH (10:04)
[2017-09-21] MEDS: NICOTINE 21 MG/24 HOURS TOPICAL PATCH TD SCH (10:04)
[2017-09-21] MEDS: EMTRICITABINE 200MG/TENOFOVIR 300MG PO SCH (10:05)
[2017-09-21] MEDS: RITONAVIR 100 MG TABLET PO SCH (10:05)
[2017-09-21] MEDS: QUEtiapine FUMARATE 50 MG TABLET PO SCH (21:14)
[2017-09-21] MEDS: hydrOXYzine PAMOATE 50 MG CAPSULE (FP) PO PRN (21:14)
[2017-09-21] MEDS: THIAMINE HCL 100 MG TABLET (FP) PO SCH (21:14)
[2017-09-22] MEDS ORDERED: PT OWN MED DRAWER 7, Y5N ONE ×2 (03:10→08:06)
[2017-09-22] MEDS: CYCLOBENZAPRINE HCL 5 MG TABLET PO SCH ×3 (06:27→21:23)
[2017-09-22] MEDS: NICOTINE 21 MG/24 HOURS TOPICAL PATCH TD SCH (09:53)
[2017-09-22] MEDS: RITONAVIR 100 MG TABLET PO SCH (09:54)
[2017-09-22] MEDS: PRENATAL VITAMINS W/ FOLIC ACID TABLET (FP) PO SCH (09:57)
[2017-09-22] MEDS: HYDROXYCHLOROQUINE SO4 200 MG TABLET (FP) PO SCH (09:57)
[2017-09-22] MEDS: DARUNAVIR ETHANOLATE 800 MG TAB PO SCH (09:57)
[2017-09-22] MEDS: EMTRICITABINE 200MG/TENOFOVIR 300MG PO SCH (09:58)
[2017-09-22] MEDS: PREGABALIN 100 MG CAPSULE PO SCH ×2 (11:37→21:25)
[2017-09-22] MEDS: hydrOXYzine PAMOATE 50 MG CAPSULE (FP) PO PRN (19:13)
[2017-09-22] MEDS: THIAMINE HCL 100 MG TABLET (FP) PO SCH (21:23)
[2017-09-22] MEDS: QUEtiapine FUMARATE 50 MG TABLET PO SCH (21:24)
[2017-09-23] MEDS: CYCLOBENZAPRINE HCL 5 MG TABLET PO SCH ×3 (06:52→21:14)
[2017-09-23] MEDS: EMTRICITABINE 200MG/TENOFOVIR 300MG PO SCH (09:55)
[2017-09-23] MEDS: DARUNAVIR ETHANOLATE 800 MG TAB PO SCH (09:56)
[2017-09-23] MEDS: HYDROXYCHLOROQUINE SO4 200 MG TABLET (FP) PO SCH (09:56)
[2017-09-23] MEDS: PREGABALIN 100 MG CAPSULE PO SCH (09:56)
[2017-09-23] MEDS: PRENATAL VITAMINS W/ FOLIC ACID TABLET (FP) PO SCH (09:57)
[2017-09-23] MEDS: NICOTINE 21 MG/24 HOURS TOPICAL PATCH TD SCH (09:57)
[2017-09-23] MEDS: RITONAVIR 100 MG TABLET PO SCH (09:58)
[2017-09-23] MEDS: hydrOXYzine PAMOATE 50 MG CAPSULE (FP) PO PRN (19:07)
[2017-09-23] MEDS: THIAMINE HCL 100 MG TABLET (FP) PO SCH (21:14)
[2017-09-23] MEDS: QUEtiapine FUMARATE 50 MG TABLET PO SCH (21:14)
[2017-09-24] MEDS: CYCLOBENZAPRINE HCL 5 MG TABLET PO SCH ×3 (06:09→21:15)
[2017-09-24] MEDS: hydrOXYzine PAMOATE 50 MG CAPSULE (FP) PO PRN (06:09)
[2017-09-24] MEDS: EMTRICITABINE 200MG/TENOFOVIR 300MG PO SCH (09:50)
[2017-09-24] MEDS: PREGABALIN 100 MG CAPSULE PO SCH (09:51)
[2017-09-24] MEDS: HYDROXYCHLOROQUINE SO4 200 MG TABLET (FP) PO SCH (09:51)
[2017-09-24] MEDS: DARUNAVIR ETHANOLATE 800 MG TAB PO SCH (09:51)
[2017-09-24] MEDS: NICOTINE 21 MG/24 HOURS TOPICAL PATCH TD SCH (09:51)
[2017-09-24] MEDS: PRENATAL VITAMINS W/ FOLIC ACID TABLET (FP) PO SCH (09:51)
[2017-09-24] MEDS: RITONAVIR 100 MG TABLET PO SCH (09:52)
[2017-09-24] MEDS: CYPROHEPTADINE HCL 4 MG TABLET PO SCH ×2 (17:20→21:16)
[2017-09-24] MEDS: QUEtiapine FUMARATE 50 MG TABLET PO SCH (21:15)
[2017-09-24] MEDS: THIAMINE HCL 100 MG TABLET (FP) PO SCH (21:15)
[2017-09-25] MEDS ORDERED: PT OWN MED DRAWER 7, Y5N ONE ×2 (05:44→09:06)
[2017-09-25] MEDS: CYCLOBENZAPRINE HCL 5 MG TABLET PO SCH ×3 (06:52→21:19)
[2017-09-25] MEDS: CYPROHEPTADINE HCL 4 MG TABLET PO SCH ×3 (07:21→21:20)
[2017-09-25] MEDS: NICOTINE 21 MG/24 HOURS TOPICAL PATCH TD SCH (09:59)
[2017-09-25] MEDS: EMTRICITABINE 200MG/TENOFOVIR 300MG PO SCH (09:59)
[2017-09-25] MEDS: PRENATAL VITAMINS W/ FOLIC ACID TABLET (FP) PO SCH (10:00)
[2017-09-25] MEDS: RITONAVIR 100 MG TABLET PO SCH (10:00)
[2017-09-25] MEDS: DARUNAVIR ETHANOLATE 800 MG TAB PO SCH (10:00)
[2017-09-25] MEDS: HYDROXYCHLOROQUINE SO4 200 MG TABLET (FP) PO SCH (10:01)
[2017-09-25] MEDS: PREGABALIN 100 MG CAPSULE PO SCH (10:02)
[2017-09-25] MEDS: hydrOXYzine PAMOATE 50 MG CAPSULE (FP) PO PRN ×2 (13:54→23:45)
[2017-09-25] MEDS: QUEtiapine FUMARATE 50 MG TABLET PO SCH (21:19)
[2017-09-25] MEDS: THIAMINE HCL 100 MG TABLET (FP) PO SCH (21:19)
[2017-09-26] MEDS ORDERED: diphenhydrAMINE HCL 25 MG CAPSULE (FP) PO ONE (01:42)
[2017-09-26] MEDS ORDERED: PT OWN MED DRAWER 7, Y5N ONE ×2 (03:29→12:00)
[2017-09-26] MEDS: hydrOXYzine PAMOATE 50 MG CAPSULE (FP) PO PRN (07:00)
[2017-09-26] MEDS: CYCLOBENZAPRINE HCL 5 MG TABLET PO SCH ×3 (07:00→21:17)
[2017-09-26] MEDS: CYPROHEPTADINE HCL 4 MG TABLET PO SCH ×3 (07:00→17:30)
[2017-09-26] MEDS: RITONAVIR 100 MG TABLET PO SCH (09:52)
[2017-09-26] MEDS: EMTRICITABINE 200MG/TENOFOVIR 300MG PO SCH (09:52)
[2017-09-26] MEDS: DARUNAVIR ETHANOLATE 800 MG TAB PO SCH (09:53)
[2017-09-26] MEDS: PRENATAL VITAMINS W/ FOLIC ACID TABLET (FP) PO SCH (09:53)
[2017-09-26] MEDS: PREGABALIN 100 MG CAPSULE PO SCH (09:53)
[2017-09-26] MEDS: HYDROXYCHLOROQUINE SO4 200 MG TABLET (FP) PO SCH (09:53)
[2017-09-26] MEDS: NICOTINE 21 MG/24 HOURS TOPICAL PATCH TD SCH (09:54)
[2017-09-26] MEDS ORDERED: ONDANSETRON *ODT* 4 MG TABLET SL ONE (14:45)
[2017-09-26] MEDS ORDERED: ONDANSETRON *ODT* 4 MG TABLET SL PRN (14:45)
[2017-09-26] MEDS ORDERED: diphenhydrAMINE HCL 50 MG CAPSULE PO PRN (14:46)
[2017-09-26] MEDS: PANTOPRAZOLE 40 MG TABLET (FP) PO SCH (15:59)
[2017-09-26] MEDS: THIAMINE HCL 100 MG TABLET (FP) PO SCH (21:17)
[2017-09-26] MEDS: hydrOXYzine PAMOATE 50 MG CAPSULE (FP) PO SCH (21:20)
[2017-09-26] MEDS: PREGABALIN 75 MG CAPSULE PO SCH (21:20)
[2017-09-26] MEDS: NAPROXEN 500 MG TABLET (FP) PO SCH (21:20)
[2017-09-26] MEDS: QUEtiapine FUMARATE 25 MG TABLET (FP) PO SCH (21:21)
[2017-09-27] MEDS ORDERED: PT OWN MED DRAWER 7, Y5N ONE ×2 (02:52→16:58)
[2017-09-27] MEDS: hydrOXYzine PAMOATE 50 MG CAPSULE (FP) PO SCH ×3 (06:54→21:14)
[2017-09-27] MEDS: CYCLOBENZAPRINE HCL 5 MG TABLET PO SCH ×3 (06:54→21:13)
[2017-09-27] MEDS: CYPROHEPTADINE HCL 4 MG TABLET PO SCH ×3 (07:38→17:25)
[2017-09-27] MEDS: NICOTINE 21 MG/24 HOURS TOPICAL PATCH TD SCH (10:00)
[2017-09-27] MEDS: EMTRICITABINE 200MG/TENOFOVIR 300MG PO SCH (10:00)
[2017-09-27] MEDS: NAPROXEN 500 MG TABLET (FP) PO SCH ×2 (10:01→21:12)
[2017-09-27] MEDS: PREGABALIN 75 MG CAPSULE PO SCH ×2 (10:01→21:12)
[2017-09-27] MEDS: PANTOPRAZOLE 40 MG TABLET (FP) PO SCH (10:01)
[2017-09-27] MEDS: RITONAVIR 100 MG TABLET PO SCH (10:01)
[2017-09-27] MEDS: HYDROXYCHLOROQUINE SO4 200 MG TABLET (FP) PO SCH (10:01)
[2017-09-27] MEDS: PRENATAL VITAMINS W/ FOLIC ACID TABLET (FP) PO SCH (10:01)
[2017-09-27] MEDS: DARUNAVIR ETHANOLATE 800 MG TAB PO SCH (10:01)
--- NOTE | 2017-09-27 15:39 | PN ---
[facility] Progress Note (SOAP) Subjective: anxiety, sweating, interrupted sleep reports stopped taking Oxycodone for pain r/t RA Objective: 09/27/17 18:12 Patient AOx3, very anxious, tumorous, ambulating , without any signs and symptoms of distress 09/27/17 18:15 Laboratory Last Values WBC 6.0 K/mm3 (4.0-10.0) 09/15/17 06:10 RBC 4.23 M/mm3 (3.60-5.2) 09/15/17 06:10 Hgb 13.0 GM/dL (10.7-15.3) 09/15/17 06:10 Hct 39.8 % (32.4-45.2) 09/15/17 06:10 MCV 93.9 fl (80-96) 09/15/17 06:10 MCH 30.7 pg (25.7-33.7) 09/15/17 06:10 MCHC 32.7 g/dl (32.0-36.0) 09/15/17 06:10 RDW 14.4 % (11.6-15.6) 09/15/17 06:10 Plt Count 169 K/MM3 (134-434) 09/15/17 06:10 MPV 11.4 fl (7.5-11.1) H 09/15/17 06:10 Neutrophils % 49.2 % (42.8-82.8) 09/15/17 06:10 Lymphocytes % 38.4 % (8-40) 09/15/17 06:10 Monocytes % 10.6 % (3.8-10.2) H 09/15/17 06:10 Eosinophils % 1.3 % (0-4.5) 09/15/17 06:10 Basophils % 0.5 % (0-2.0) 09/15/17 06:10 PT with INR 11.40 SEC (9.98-11.88) 09/15/17 07:50 INR 1.01 (0.82-1.09) 09/15/17 07:50 Sodium 141 mmol/L (136-145) 09/15/17 06:10 Potassium 3.6 mmol/L (3.5-5.1) 09/15/17 06:10 Chloride 107 mmol/L (98-107) 09/15/17 06:10 Carbon Dioxide 29 mmol/L (21-32) 09/15/17 06:10 Anion Gap 5 (8-16) L 09/15/17 06:10 BUN 14 mg/dL (7-18) 09/15/17 06:10 Creatinine 1.0 mg/dL (0.55-1.02) 09/15/17 06:10 Creat Clearance w eGFR 57.78 (>60) 09/15/17 06:10 POC Glucometer 97 UNITS (80-120) 09/27/17 06:53 Random Glucose 131 mg/dL (74-106) H 09/15/17 06:10 Calcium 8.3 mg/dL (8.5-10.1) L 09/15/17 06:10 Total Bilirubin 0.3 mg/dL (0.2-1.0) 09/15/17 06:10 AST 22 U/L (15-37) 09/15/17 06:10 ALT 27 U/L (12-78) 09/15/17 06:10 Alkaline Phosphatase 95 U/L (45-117) 09/15/17 06:10 Total Protein 7.6 g/dl (6.4-8.2) 09/15/17 06:10 Albumin 3.6 g/dl (3.4-5.0) 09/15/17 06:10 Urine Color Priscila 09/14/17 Unknown Urine Appearance Cloudy 09/14/17 Unknown Urine pH 5.0 (5.0-8.0) 09/14/17 Unknown Ur Specific Finley 1.024 (1.001-1.035) 09/14/17 Unknown Urine Protein Negative (NEGATIVE) 09/14/17 Unknown Urine Glucose (UA) Negative (NEGATIVE) 09/14/17 Unknown Urine Ketones Negative (NEGATIVE) 09/14/17 Unknown Urine Blood Negative (NEGATIVE) 09/14/17 Unknown Urine Nitrite Negative (NEGATIVE) 09/14/17 Unknown Urine Bilirubin Negative (NEGATIVE) 09/14/17 Unknown Urine Urobilinogen Negative mg/dL (0.2-1.0) 09/14/17 Unknown Ur Leukocyte Esterase Trace (NEGATIVE) 09/14/17 Unknown Urine WBC (Auto) 14 /hpf (3-5) 09/14/17 Unknown Urine RBC (Auto) 2 /hpf (0-3) 09/14/17 Unknown Ur Epithelial Cells Rare /HPF (FEW) 09/14/17 Unknown Urine Mucus Rare 09/14/17 Unknown RPR Titer Nonreactive (NONREACTIVE) 09/15/17 06:10 Hepatitis C Antibody 0.2 s/co ratio (0.0-0.9) 09/20/17 11:50 labs noted Assessment: anxiety withdrawal symptoms 09/27/17 18:14 Plan: Psych Consult for medication adjustment Increase fluids Continue to monitor
[2017-09-27] MEDS: THIAMINE HCL 100 MG TABLET (FP) PO SCH (21:12)
[2017-09-27] MEDS: QUEtiapine FUMARATE 25 MG TABLET (FP) PO SCH (21:14)
[2017-09-27] MEDS: ACETAMINOPHEN 325 MG TABLET (FP) PO PRN (23:50)
[2017-09-28] MEDS ORDERED: PT OWN MED DRAWER 7, Y5N ONE ×3 (03:12→17:17)
[2017-09-28] MEDS: CYCLOBENZAPRINE HCL 5 MG TABLET PO SCH ×3 (06:13→21:23)
[2017-09-28] MEDS: hydrOXYzine PAMOATE 50 MG CAPSULE (FP) PO SCH ×3 (06:13→21:23)
[2017-09-28] MEDS: CYPROHEPTADINE HCL 4 MG TABLET PO SCH ×3 (07:53→17:58)
[2017-09-28] MEDS: NICOTINE 21 MG/24 HOURS TOPICAL PATCH TD SCH (10:11)
[2017-09-28] MEDS: NAPROXEN 500 MG TABLET (FP) PO SCH ×2 (10:12→21:23)
[2017-09-28] MEDS: DARUNAVIR ETHANOLATE 800 MG TAB PO SCH (10:12)
[2017-09-28] MEDS: RITONAVIR 100 MG TABLET PO SCH (10:12)
[2017-09-28] MEDS: EMTRICITABINE 200MG/TENOFOVIR 300MG PO SCH (10:12)
[2017-09-28] MEDS: PRENATAL VITAMINS W/ FOLIC ACID TABLET (FP) PO SCH (10:12)
[2017-09-28] MEDS: PREGABALIN 75 MG CAPSULE PO SCH ×2 (10:13→21:23)
[2017-09-28] MEDS: HYDROXYCHLOROQUINE SO4 200 MG TABLET (FP) PO SCH (10:13)
[2017-09-28] MEDS: PANTOPRAZOLE 40 MG TABLET (FP) PO SCH (10:13)
[2017-09-28] MEDS ORDERED: COLLOIDAL OATMEAL 1 BAR EACH TP PRN (17:27)
[2017-09-28] MEDS: THIAMINE HCL 100 MG TABLET (FP) PO SCH (21:23)
[2017-09-28] MEDS: QUEtiapine FUMARATE 25 MG TABLET (FP) PO SCH (21:24)
[2017-09-29] MEDS ORDERED: PT OWN MED DRAWER 7, Y5N ONE ×3 (05:46→17:13)
[2017-09-29] MEDS: CYCLOBENZAPRINE HCL 5 MG TABLET PO SCH ×3 (06:16→21:10)
[2017-09-29] MEDS: hydrOXYzine PAMOATE 50 MG CAPSULE (FP) PO SCH ×3 (06:16→21:10)
[2017-09-29] MEDS: ACETAMINOPHEN 325 MG TABLET (FP) PO PRN (06:17)
[2017-09-29] MEDS: CYPROHEPTADINE HCL 4 MG TABLET PO SCH ×3 (07:19→17:15)
[2017-09-29] MEDS: DARUNAVIR ETHANOLATE 800 MG TAB PO SCH (09:56)
[2017-09-29] MEDS: PREGABALIN 75 MG CAPSULE PO SCH ×2 (09:56→21:10)
[2017-09-29] MEDS: PRENATAL VITAMINS W/ FOLIC ACID TABLET (FP) PO SCH (09:57)
[2017-09-29] MEDS: PANTOPRAZOLE 40 MG TABLET (FP) PO SCH (09:57)
[2017-09-29] MEDS: HYDROXYCHLOROQUINE SO4 200 MG TABLET (FP) PO SCH (09:57)
[2017-09-29] MEDS: NAPROXEN 500 MG TABLET (FP) PO SCH ×2 (09:57→21:10)
[2017-09-29] MEDS: EMTRICITABINE 200MG/TENOFOVIR 300MG PO SCH (09:58)
[2017-09-29] MEDS: NICOTINE 21 MG/24 HOURS TOPICAL PATCH TD SCH (09:58)
[2017-09-29] MEDS: RITONAVIR 100 MG TABLET PO SCH (09:58)
[2017-09-29] MEDS: THIAMINE HCL 100 MG TABLET (FP) PO SCH (21:10)
[2017-09-29] MEDS: QUEtiapine FUMARATE 25 MG TABLET (FP) PO SCH (21:11)
[2017-09-30] MEDS: ACETAMINOPHEN 325 MG TABLET (FP) PO PRN (00:33)
[2017-09-30] MEDS ORDERED: PT OWN MED DRAWER 7, Y5N ONE (05:45)
[2017-09-30] MEDS: hydrOXYzine PAMOATE 50 MG CAPSULE (FP) PO SCH ×3 (06:37→21:13)
[2017-09-30] MEDS: CYCLOBENZAPRINE HCL 5 MG TABLET PO SCH ×3 (06:37→21:13)
[2017-09-30] MEDS: CYPROHEPTADINE HCL 4 MG TABLET PO SCH ×3 (07:01→17:35)
[2017-09-30] MEDS: RITONAVIR 100 MG TABLET PO SCH (10:03)
[2017-09-30] MEDS: EMTRICITABINE 200MG/TENOFOVIR 300MG PO SCH (10:03)
[2017-09-30] MEDS: PRENATAL VITAMINS W/ FOLIC ACID TABLET (FP) PO SCH (10:04)
[2017-09-30] MEDS: NICOTINE 21 MG/24 HOURS TOPICAL PATCH TD SCH (10:04)
[2017-09-30] MEDS: NAPROXEN 500 MG TABLET (FP) PO SCH ×2 (10:04→21:13)
[2017-09-30] MEDS: PREGABALIN 75 MG CAPSULE PO SCH ×2 (10:04→21:13)
[2017-09-30] MEDS: PANTOPRAZOLE 40 MG TABLET (FP) PO SCH (10:04)
[2017-09-30] MEDS: DARUNAVIR ETHANOLATE 800 MG TAB PO SCH (10:04)
[2017-09-30] MEDS: HYDROXYCHLOROQUINE SO4 200 MG TABLET (FP) PO SCH (10:05)
[2017-09-30] MEDS: THIAMINE HCL 100 MG TABLET (FP) PO SCH (21:13)
[2017-09-30] MEDS: QUEtiapine FUMARATE 25 MG TABLET (FP) PO SCH (21:14)
[2017-10-01] MEDS: ACETAMINOPHEN 325 MG TABLET (FP) PO PRN (01:03)
[2017-10-01] MEDS ORDERED: PT OWN MED DRAWER 7, Y5N ONE ×2 (03:16→18:08)
[2017-10-01] MEDS: CYPROHEPTADINE HCL 4 MG TABLET PO SCH ×3 (07:16→17:20)
[2017-10-01] MEDS: hydrOXYzine PAMOATE 50 MG CAPSULE (FP) PO SCH ×3 (07:16→21:19)
[2017-10-01] MEDS: CYCLOBENZAPRINE HCL 5 MG TABLET PO SCH ×3 (07:16→21:19)
[2017-10-01] MEDS: PREGABALIN 75 MG CAPSULE PO SCH (09:57)
[2017-10-01] MEDS: NAPROXEN 500 MG TABLET (FP) PO SCH ×2 (09:57→21:19)
[2017-10-01] MEDS: PRENATAL VITAMINS W/ FOLIC ACID TABLET (FP) PO SCH (09:57)
[2017-10-01] MEDS: RITONAVIR 100 MG TABLET PO SCH (09:57)
[2017-10-01] MEDS: NICOTINE 21 MG/24 HOURS TOPICAL PATCH TD SCH (09:57)
[2017-10-01] MEDS: DARUNAVIR ETHANOLATE 800 MG TAB PO SCH (09:57)
[2017-10-01] MEDS: PANTOPRAZOLE 40 MG TABLET (FP) PO SCH (09:57)
[2017-10-01] MEDS: HYDROXYCHLOROQUINE SO4 200 MG TABLET (FP) PO SCH (09:57)
[2017-10-01] MEDS: EMTRICITABINE 200MG/TENOFOVIR 300MG PO SCH (09:57)
[2017-10-01] MEDS ORDERED: BUPRENORPHINE/NALOXONE 2 MG/0.5 MG FILM PACKET SL ONE (15:27)
--- NOTE | 2017-10-01 15:29 | PN ---
BHS Progress Note (SOAP) Subjective: c/o chornic pain from shingles - post herpetic neurlagia and anxiety Objective: 10/01/17 15:27 Vital Signs - 24 hr 10/01/17 10/01/17 10/01/17 00:30 03:30 07:07 Temperature 97.8 F Pulse Rate 84 Respiratory 16 16 16 Rate Blood Pressure 110/74 Laboratory Tests 09/14/17 09/15/17 09/15/17 Unknown 06:10 06:10 WBC RBC Hgb Hct MCV MCH MCHC RDW Plt Count MPV Neutrophils % Lymphocytes % Monocytes % Eosinophils % Basophils % PT with INR INR Sodium 141 Potassium 3.6 Chloride 107 Carbon Dioxide 29 Anion Gap 5 L BUN 14 Creatinine 1.0 Creat Clearance w eGFR 57.78 POC Glucometer Random Glucose 131 H Calcium 8.3 L Total Bilirubin 0.3 AST 22 ALT 27 Alkaline Phosphatase 95 Total Protein 7.6 Albumin 3.6 Urine Color Priscila Urine Appearance Cloudy Urine pH 5.0 Ur Specific Yoder 1.024 Urine Protein Negative Urine Glucose (UA) Negative Urine Ketones Negative Urine Blood Negative Urine Nitrite Negative Urine Bilirubin Negative Urine Urobilinogen Negative Ur Leukocyte Esterase Trace Urine WBC (Auto) 14 Urine RBC (Auto) 2 Ur Epithelial Cells Rare Urine Mucus Rare RPR Titer Nonreactive Hepatitis C Antibody 09/15/17 09/15/17 09/20/17 06:10 07:50 11:50 WBC 6.0 RBC 4.23 Hgb 13.0 Hct 39.8 MCV 93.9 MCH 30.7 MCHC 32.7 RDW 14.4 Plt Count 169 MPV 11.4 H Neutrophils % 49.2 Lymphocytes % 38.4 Monocytes % 10.6 H Eosinophils % 1.3 Basophils % 0.5 PT with INR 11.40 INR 1.01 Sodium Potassium Chloride Carbon Dioxide Anion Gap BUN Creatinine Creat Clearance w eGFR POC Glucometer Random Glucose Calcium Total Bilirubin AST ALT Alkaline Phosphatase Total Protein Albumin Urine Color Urine Appearance Urine pH Ur Specific Yoder Urine Protein Urine Glucose (UA) Urine Ketones Urine Blood Urine Nitrite Urine Bilirubin Urine Urobilinogen Ur Leukocyte Esterase Urine WBC (Auto) Urine RBC (Auto) Ur Epithelial Cells Urine Mucus RPR Titer Hepatitis C Antibody 0.2 09/25/17 09/26/17 09/27/17 06:55 07:09 06:53 WBC RBC Hgb Hct MCV MCH MCHC RDW Plt Count MPV Neutrophils % Lymphocytes % Monocytes % Eosinophils % Basophils % PT with INR INR Sodium Potassium Chloride Carbon Dioxide Anion Gap BUN Creatinine Creat Clearance w eGFR POC Glucometer 92 99 97 Random Glucose Calcium Total Bilirubin AST ALT Alkaline Phosphatase Total Protein Albumin Urine Color Urine Appearance Urine pH Ur Specific Yoder Urine Protein Urine Glucose (UA) Urine Ketones Urine Blood Urine Nitrite Urine Bilirubin Urine Urobilinogen Ur Leukocyte Esterase Urine WBC (Auto) Urine RBC (Auto) Ur Epithelial Cells Urine Mucus RPR Titer Hepatitis C Antibody 09/28/17 09/29/17 09/30/17 06:15 06:56 06:36 WBC RBC Hgb Hct MCV MCH MCHC RDW Plt Count MPV Neutrophils % Lymphocytes % Monocytes % Eosinophils % Basophils % PT with INR INR Sodium Potassium Chloride Carbon Dioxide Anion Gap BUN Creatinine Creat Clearance w eGFR POC Glucometer 92 91 93 Random Glucose Calcium Total Bilirubin AST ALT Alkaline Phosphatase Total Protein Albumin Urine Color Urine Appearance Urine pH Ur Specific Yoder Urine Protein Urine Glucose (UA) Urine Ketones Urine Blood Urine Nitrite Urine Bilirubin Urine Urobilinogen Ur Leukocyte Esterase Urine WBC (Auto) Urine RBC (Auto) Ur Epithelial Cells Urine Mucus RPR Titer Hepatitis C Antibody 10/01/17 07:19 WBC RBC Hgb Hct MCV MCH MCHC RDW Plt Count MPV Neutrophils % Lymphocytes % Monocytes % Eosinophils % Basophils % PT with INR INR Sodium Potassium Chloride Carbon Dioxide Anion Gap BUN Creatinine Creat Clearance w eGFR POC Glucometer 99 Random Glucose Calcium Total Bilirubin AST ALT Alkaline Phosphatase Total Protein Albumin Urine Color Urine Appearance Urine pH Ur Specific Yoder Urine Protein Urine Glucose (UA) Urine Ketones Urine Blood Urine Nitrite Urine Bilirubin Urine Urobilinogen Ur Leukocyte Esterase Urine WBC (Auto) Urine RBC (Auto) Ur Epithelial Cells Urine Mucus RPR Titer Hepatitis C Antibody Assessment: 10/01/17 15:28 post herpetic neuralgai - increase lyrica, start elavil at night, start suboxone 2mg bid for pain and oud. will assess efficacy and find program for when she leaves 10/01/17 15:29
[2017-10-01] MEDS ORDERED: CYCLOBENZAPRINE HCL 10 MG TABLET (FP) PO SCH (15:30)
[2017-10-01] MEDS ORDERED: MAGNESIUM CITRATE 300 ML BOTTLE PO ONE (15:35)
[2017-10-01] MEDS: MAG HYDROX/ALH/SMC/DPHA/LIDO 240 ML MOUTHWASH MM SCH (18:20)
[2017-10-01] MEDS: BUPRENORPHINE/NALOXONE 2 MG/0.5 MG FILM PACKET SL SCH (21:19)
[2017-10-01] MEDS: PREGABALIN 100 MG CAPSULE PO SCH (21:19)
[2017-10-01] MEDS: THIAMINE HCL 100 MG TABLET (FP) PO SCH (21:19)
[2017-10-01] MEDS: QUEtiapine FUMARATE 100 MG TABLET (FP) PO SCH (21:19)
[2017-10-01] MEDS: AMITRIPTYLINE HCL 25 MG TABLET (FP) PO SCH (21:19)
[2017-10-02] MEDS: MAG HYDROX/ALH/SMC/DPHA/LIDO 240 ML MOUTHWASH MM SCH ×4 (00:29→17:00)
[2017-10-02] MEDS ORDERED: PT OWN MED DRAWER 7, Y5N ONE ×2 (03:07→16:58)
[2017-10-02] MEDS: CYCLOBENZAPRINE HCL 5 MG TABLET PO SCH ×3 (06:18→21:06)
[2017-10-02] MEDS: hydrOXYzine PAMOATE 50 MG CAPSULE (FP) PO SCH ×3 (06:18→21:06)
[2017-10-02] MEDS: CYPROHEPTADINE HCL 4 MG TABLET PO SCH ×3 (07:39→16:59)
[2017-10-02] MEDS: NICOTINE 21 MG/24 HOURS TOPICAL PATCH TD SCH (09:43)
[2017-10-02] MEDS: RITONAVIR 100 MG TABLET PO SCH (09:43)
[2017-10-02] MEDS: PREGABALIN 100 MG CAPSULE PO SCH ×2 (09:44→21:06)
[2017-10-02] MEDS: EMTRICITABINE 200MG/TENOFOVIR 300MG PO SCH (09:44)
[2017-10-02] MEDS: PRENATAL VITAMINS W/ FOLIC ACID TABLET (FP) PO SCH (09:44)
[2017-10-02] MEDS: HYDROXYCHLOROQUINE SO4 200 MG TABLET (FP) PO SCH (09:44)
[2017-10-02] MEDS: PANTOPRAZOLE 40 MG TABLET (FP) PO SCH (09:44)
[2017-10-02] MEDS: NAPROXEN 500 MG TABLET (FP) PO SCH ×2 (09:44→21:07)
[2017-10-02] MEDS: DARUNAVIR ETHANOLATE 800 MG TAB PO SCH (09:44)
[2017-10-02] MEDS: BUPRENORPHINE/NALOXONE 2 MG/0.5 MG FILM PACKET SL SCH ×2 (09:45→21:06)
[2017-10-02] MEDS: AMITRIPTYLINE HCL 25 MG TABLET (FP) PO SCH (21:07)
[2017-10-02] MEDS: THIAMINE HCL 100 MG TABLET (FP) PO SCH (21:07)
[2017-10-02] MEDS: QUEtiapine FUMARATE 100 MG TABLET (FP) PO SCH (21:07)
[2017-10-03] MEDS: MAG HYDROX/ALH/SMC/DPHA/LIDO 240 ML MOUTHWASH MM SCH ×3 (00:42→11:42)
[2017-10-03] MEDS ORDERED: PT OWN MED DRAWER 7, Y5N ONE ×2 (03:04→11:41)
[2017-10-03] MEDS: CYCLOBENZAPRINE HCL 5 MG TABLET PO SCH ×2 (06:58→13:33)
[2017-10-03] MEDS: hydrOXYzine PAMOATE 50 MG CAPSULE (FP) PO SCH ×2 (06:58→13:33)
[2017-10-03] MEDS: CYPROHEPTADINE HCL 4 MG TABLET PO SCH ×2 (07:00→11:41)
[2017-10-03 07:42] VITALS: BP 116/72; PULSE 87; TEMP 97.4
[2017-10-03] MEDS: RITONAVIR 100 MG TABLET PO SCH (09:53)
[2017-10-03] MEDS: EMTRICITABINE 200MG/TENOFOVIR 300MG PO SCH (09:53)
[2017-10-03] MEDS: NICOTINE 21 MG/24 HOURS TOPICAL PATCH TD SCH (09:53)
[2017-10-03] MEDS: BUPRENORPHINE/NALOXONE 2 MG/0.5 MG FILM PACKET SL SCH (09:53)
[2017-10-03] MEDS: PREGABALIN 100 MG CAPSULE PO SCH (09:54)
[2017-10-03] MEDS: DARUNAVIR ETHANOLATE 800 MG TAB PO SCH (09:54)
[2017-10-03] MEDS: NAPROXEN 500 MG TABLET (FP) PO SCH (09:55)
[2017-10-03] MEDS: PANTOPRAZOLE 40 MG TABLET (FP) PO SCH (09:55)
[2017-10-03] MEDS: PRENATAL VITAMINS W/ FOLIC ACID TABLET (FP) PO SCH (09:55)
[2017-10-03] MEDS: HYDROXYCHLOROQUINE SO4 200 MG TABLET (FP) PO SCH (09:55)
--- NOTE | 2017-10-03 16:47 | PN ---
S Progress Note Note: Patient walked off the unit today without notifying staff about the reasons.See staff notes for details.
== END 2017-10-03 14:40 | disposition left against medical advice (07) | DRG 894 ==
LOC: YASAS 08:54 → Y6N 14:03 → Y3E 09-19 13:02
PROVIDERS: ADMIT Internal Medicine; ATTEND Psychiatry & Neurology Psychiatry
PROC: HZ2ZZZZ Detoxification Services for Substance Abuse Treatment (ICD-10-PCS; principal; 2017-09-14)
PROC: HZ42ZZZ Group Counseling for Substance Abuse Treatment, Cognitive-Behavioral (ICD-10-PCS; 2017-09-19)
DX: F11.23 Opioid dependence with withdrawal (principal); F33.9 Major depressive disorder, recurrent, unspecified; B02.29 Other postherpetic nervous system involvement; F17.210 Nicotine dependence, cigarettes, uncomplicated; F19.24 Other psychoactive substance dependence with psychoactive substance-induced mood disorder; F43.10 Post-traumatic stress disorder, unspecified; F41.9 Anxiety disorder, unspecified; Z21 Asymptomatic human immunodeficiency virus [HIV] infection status; G47.00 Insomnia, unspecified; Z85.41 Personal history of malignant neoplasm of cervix uteri; Z86.69 Personal history of other diseases of the nervous system and sense organs; Z90.710 Acquired absence of both cervix and uterus
CPT/HCPCS: 36415; 80053; 81003; 81015; 82140; 82962; 85025; 85610; 86593; 86803; 90688; 93005; 93010; G0008; J0735

== ENCOUNTER 2017-10-04 02:04 | Emergency (ER) | payer OTHER ==
--- NOTE | 2017-10-04 02:39 | PDOC ---
History of Present Illness - General Stated Complaint: ABNORMAL LABS Time Seen by Provider: 10/04/17 02:38 - History of Present Illness Initial Comments: 52 year old female with history of HIV (medicated and states that counts have always been good), depressed appetite, opioid dependence, and chronic pain presenting 1 day after discharge home from 2 week opioid dependence rehabilitation because the facility called her to visit the nearest hospital for an elevated ammonia level (94). The facility raul only an ammonia level on withotu other labs. However, labs from 09/15/17 were all WNL. No CD4 or viral load in our system. Denies fevers, chills, nausea, vomiting, diarrhea, abdominal pain, bleeding from any orifice, chest pain, or other symptoms. 10/04/17 03:21 Past History - Past Medical History Allergies/Adverse Reactions: Allergies Allergy/AdvReac Type Severity Reaction Status Date / Time No Allergy Information Allergy Verified 10/04/17 02:43 Available Home Medications: Ambulatory Orders Bupropion HCl [Bupropion HCl Sr] 150 mg PO DAILY 09/14/17 Loperamide HCl [Loperamide] 2 mg PO QID PRN 09/14/17 Pregabalin [Lyrica -] 300 mg PO BID 09/14/17 Ritonavir [Norvir -] 100 mg PO DAILY 09/14/17 clonazePAM [Klonopin -] 0.5 mg PO BID 09/14/17 traMADol HCL [Ultram] 50 mg PO Q6H PRN 09/14/17 Darunavir Ethanolate [Prezista] 800 mg PO DAILY 09/19/17 Emtricitabine/Tenofovir [Truvada] 1 tab PO DAILY 09/19/17 Hydroxychloroquine Sulfate [Plaquenil] 400 mg PO DAILY 09/19/17 Quetiapine Fumarate [Seroquel] 50 tab PO HS 09/19/17 Ritonavir [Norvir -] 100 mg PO DAILY@0800 #30 tab 09/19/17 Anemia: No Asthma: No Cancer: No Cardiac Disorders: Yes (Stroke at age of 40) CVA: No COPD: No CHF: No Dementia: No Diabetes: No GI Disorders: No Disorders: No HTN: No Hypercholesterolemia: No Kidney Stones: No Liver Disease: No Seizures: Yes (R/T drugs 2014) Thyroid Disease: No - Reproductive History PID: Yes - Suicide/Smoking/Psychosocial Hx Smoking History: Current every day smoker Have you smoked in the past 12 months: Yes Number of Cigarettes Smoked Daily: 20 'Breaking Loose' booklet given: 09/14/17 Hx Alcohol Use: Yes (REPORTS DRINKING SINCE 14 YO,ON AND OFF,CONSIDER NOT A PROBLEM) Drug/Substance Use Hx: Yes (Percoset started 8 yo,heroin since 2017,,crack since 20yo) Substance Use Type: Alcohol, Cocaine, Heroin Hx Substance Use Treatment: Yes (longest abstinent 23 years) Review of Systems - Review of Systems Constitutional: Yes: Loss of Appetite. No: Chills, Diaphoresis, Fever HEENTM: No: Eye Pain, Blurred Vision Respiratory: No: Cough, Shortness of Breath, Wheezing, Productive cough Cardiac (ROS): No: Chest Pain, Edema, Irregular Heart Rate, Syncope ABD/GI: No: Abdominal Distended, Diarrhea, Difficulty Swallowing, Nausea, Rectal Bleeding, Vomiting, Indigestion : No: Burning, Dysuria, Discharge, Frequency Musculoskeletal: No: Back Pain Integumentary: No: Bruising, Change in Color, Lumps, Rash Neurological: Yes: Weakness. No: Numbness, Paresthesia, Tremors *Physical Exam - Physical Exam General Appearance: Yes: Nourished, Appropriately Dressed. No: Apparent Distress HEENT: positive: EOMI, JOHANN, Normal ENT Inspection, Normal Voice Neck: positive: Trachea midline, Normal Thyroid, Supple. negative: Tender, Rigid Respiratory/Chest: positive: Lungs Clear, Normal Breath Sounds. negative: Chest Tender, Respiratory Distress, Accessory Muscle Use Cardiovascular: positive: Regular Rhythm, Regular Rate Gastrointestinal/Abdominal: positive: Normal Bowel Sounds, Tender (slight epigastric tenderness to deep palpation), Flat, Soft. negative: Pulsatile Mass , Increased Bowel Sounds, Protuberent, Distended, Guarding, Hernia, Hepatomegaly , Spleenomegaly Musculoskeletal: positive: Normal Inspection Extremity: positive: Normal Capillary Refill, Normal Inspection, Normal Range of Motion. 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 No other labs have been drawn for this patient sine 09/15 so the significance of that ammonia is undetermined. Will repeat labs to determine if there is any degree of liver dysfunction or if lab value is spurious. Abdominal exam quite benign so will defer imaging pending labs results. 10/04/17 03:33 Labs significant for slightly elevated ammonia at 40 and slightly elevated BUN at 20. Patient admits to have taken lactulose yesterday. Given stable mental status and overall unimpressive labs, will have patient follow up with her PCP tomorrow with these labs values. 10/04/17 04:29 *DC/Admit/Observation/Transfer Diagnosis at time of Disposition: Increased ammonia level - Discharge Dispostion Disposition: HOME Condition at time of disposition: Improved Admit: No - Referrals Referrals: Anika Elizabeth [Other] - Patient Instructions Additional Instructions: Your ammonia level here was decreased from the higher level yesterday but likely because you took lactulose at home. Please follow up with your primary care physician tomorrow to see if this could be caused by any of your medications. Please return to the ED if you have any new or worsening symptoms or you have memory difficulty, fevers, chills, abdominal pain, worsening nausea , worsening vomiting, or worsening diarrhea. - Post Discharge Activity
[2017-10-04 02:45] VITALS: BP 105/82; PULSE 88; BMI 18.9
--- NOTE | 2017-10-04 02:46 | PDOC ---
Attending Attestation - HPI HPI: 10/04/17 03:41 The patient is a 52 year old female with a significant PMH of HIV, opioid dependence, and chronic pain who presents to the emergency department for evaluation of elevated ammonia level. She reports having an ammonia level drawn on 10/03/2017 at opioid rehab and discharged later that day, after which the facility called and reported her elevated result, prompting her visit. Allergies: NKA <Alex Loco - Last Filed: 10/04/17 03:54> - Resident Resident Name: Mariam Greer - ED Attending Attestation I have performed the following: I have examined & evaluated the patient, The case was reviewed & discussed with the resident, I agree w/resident's findings & plan, Exceptions are as noted - Physicial Exam PE: 10/04/17 04:08 *Physical Exam General Appearance: Yes: Appropriately Dressed. No: Apparent Distress, Intoxicated HEENT: positive: EOMI, JOHANN, Normal ENT Inspection, Normal Voice, TMs Normal, Pharynx Normal. negative: Pale Conjunctivae, Photophobia, Scleral Icterus (R), Scleral Icterus (L) Neck: positive: Trachea midline, Normal Thyroid, Supple. negative: Tender, Rigid, Carotid bruit, Stridor, Lymphadenopathy (R), Lymphadenopathy (L), Thyromegaly Respiratory/Chest: positive: Lungs Clear, Normal Breath Sounds. negative: Chest Tender, Respiratory Distress, Accessory Muscle Use, Labored Respiration, RES, Crackles, Rales, Rhonchi, Stridor, Wheezing, Dullness Cardiovascular: positive: Regular Rhythm, Regular Rate, S1, S2. negative: Edema , JVD, Murmur, Bradycardia, Tachycardia Vascular Pulses: Dorsalis-Pedis (R): 2+, Doralis-Pedis (L): 2+ Gastrointestinal/Abdominal: positive: Normal Bowel Sounds, Flat, Soft. negative : Tender, Organomegaly, Pulsatile Mass, Increased Bowel Sounds, Decreased BS, Distended, Guarding, Rebound, Hernia, Hepatomegaly, Spleenomegaly Lymphatic: negative: Adenopathy, Tenderness Musculoskeletal: positive: Normal Inspection. negative: CVA Tenderness, Decreased Range of Motion Extremity: positive: Normal Capillary Refill, Normal Inspection, Normal Range of Motion, Pelvis Stable. negative: Tender, Pedal Edema, Swelling, Erythema Integumentary: positive: Normal Color, Dry, Warm. negative: Cyanotic, Erythema , Jaundice, Rash Neurologic: positive: testing and regulating chief II-XII NML intact, Fully Oriented, Alert, Normal Mood/ Affect, Motor Strength 5/5. negative: EOM Palsy, Facial Droop, Sensory Deficit - Medical Decision Making 10/04/17 19:25 Pt treated and released <Tanner Chanel - Last Filed: 10/04/17 19:25>
[2017-10-04 03:35] LABS: BASO % 0.4 % (0-2.0); EOS % 1.4 % (0-4.5); HEMATOCRIT 35.1 % (32.4-45.2); HEMOGLOBIN 11.9 GM/dL (10.7-15.3); LYMPH % 39.4 % (8-40); MCH 31.1 pg (25.7-33.7); MCHC 33.8 g/dl (32.0-36.0); MEAN CELL VOLUME 91.9 fl (80-96); MEAN PLT VOLUME 10.2 fl (7.5-11.1); MONO % 12.5 % (3.8-10.2); NEUT % 46.3 % (42.8-82.8); PLATELET COUNT 169 K/MM3 (134-434); RBC 3.82 M/mm3 (3.60-5.2); RDW 14.2 % (11.6-15.6); WHITE BLOOD COUNT 7.4 K/mm3 (4.0-10.0)
[2017-10-04 03:59] LABS: ALBUMIN 3.7 g/dl (3.4-5.0); ALK PHOS 123 U/L (45-117); ANION GAP 6 (8-16); BILIRUBIN,DIRECT < 0.2 mg/dL (0.0-0.2); BILIRUBIN,TOTAL 0.3 mg/dL (0.2-1.0); BLOOD UREA NITROGEN 23 mg/dL (7-18); CALCIUM 8.4 mg/dL (8.5-10.1); CHLORIDE 102 mmol/L (98-107); CO2 31 mmol/L (21-32); CREATININE 0.9 mg/dL (0.55-1.02); GLUCOSE,RANDOM 81 mg/dL (74-106); POTASSIUM 4.2 mmol/L (3.5-5.1); SGOT/AST 20 U/L (15-37); SGPT/ALT 24 U/L (12-78); SODIUM 139 mmol/L (136-145); TOT PROT 7.2 g/dl (6.4-8.2)
[2017-10-04 04:22] LABS: MAGNESIUM 1.8 mg/dL (1.8-2.4); PHOSPHOROUS 4.6 mg/dL (2.5-4.9)
== END 2017-10-04 04:49 | disposition home or self-care (01) ==
LOC: JER 02:04
DX: R74.8 Abnormal levels of other serum enzymes (principal); Z21 Asymptomatic human immunodeficiency virus [HIV] infection status; Z86.73 Personal history of transient ischemic attack (TIA), and cerebral infarction without residual deficits; Z86.69 Personal history of other diseases of the nervous system and sense organs; F11.20 Opioid dependence, uncomplicated
CPT/HCPCS: 36415; 80053; 82140; 82248; 83690; 83735; 84100; 85025; 87804; 99281-25

== ENCOUNTER 2021-10-13 16:36 | Inpatient (IN) | payer OTHER ==
[2021-10-13 18:04] VITALS: BMI 20.7
[2021-10-13] MEDS ORDERED: ACETAMINOPHEN 325 MG TABLET (FP) PO PRN (20:07)
[2021-10-13] MEDS ORDERED: guaiFENesin 200 MG/10 ML 10 ML UNIT-DOSE CUPS PO PRN (20:07)
[2021-10-13] MEDS ORDERED: MAGNESIUM HYDROX 2400MG/30ML ORAL SUSPENSION 30 ML CUP PO PRN (20:07)
[2021-10-13] MEDS ORDERED: MAG HYDROX/AL HYDROX/SIMETH 30 ML UNIT-DOSE CUP PO PRN (20:07)
[2021-10-13] MEDS ORDERED: P-EPHED 60MG/TRIPROLIDI 2.5MG TABLET PO PRN (20:07)
[2021-10-13] MEDS ORDERED: MAGNESIUM CITRATE 300 ML BOTTLE PO PRN (20:07)
[2021-10-13] MEDS ORDERED: MELATONIN 5 MG TABLETS PO SCH (22:00)
[2021-10-13] MEDS ORDERED: hydrOXYzine PAMOATE 25 MG CAPSULE (FP) PO SCH (22:00)
[2021-10-14] MEDS: THIAMINE HCL 100 MG TABLET (FP) PO SCH ×2 (02:25→21:29)
[2021-10-14] MEDS ORDERED: EMTRICITABINE/TENOFOV ALAFENAM (DESCOVY) TABLET PO SCH (10:00)
[2021-10-14 10:29] LABS: HEMATOCRIT 37.6 % (32.4-45.2); HEMOGLOBIN 12.3 GM/dL (10.7-15.3); MCH 30.2 pg (25.7-33.7); MCHC 32.6 g/dl (32.0-36.0); MEAN CELL VOLUME 92.6 fl (80-96); MEAN PLT VOLUME 9.9 fl (7.5-11.1); PLATELET COUNT 190 10^3/uL (134-434); RBC 4.06 M/mm3 (3.60-5.2); RDW 15.3 % (11.6-15.6); WHITE BLOOD COUNT 6.7 K/mm3 (4.0-10.0)
[2021-10-14 10:54] LABS: CALCIUM 9.5 mg/dL (8.5-10.1)
[2021-10-14 10:55] LABS: ALBUMIN 3.7 g/dl (3.4-5.0); BLOOD UREA NITROGEN 12.7 mg/dL (7-18)
[2021-10-14 10:58] LABS: CREATININE 0.9 mg/dL (0.55-1.3); SYPHILIS W/ RPR CONF NON-REACTIVE (NONREACTIVE)
[2021-10-14 10:59] LABS: BILIRUBIN,TOTAL 0.3 mg/dL (0.2-1)
[2021-10-14 11:00] LABS: TOT PROT 7.4 g/dl (6.4-8.2)
[2021-10-14] MEDS: NICOTINE 7 MG/24 HOURS TOPICAL PATCH TD SCH (11:07)
[2021-10-14] MEDS: PRENATAL VITAMINS W/ FOLIC ACID TABLET (FP) PO SCH (11:07)
[2021-10-14] MEDS: BICTEGRAV/EMTRICIT/TENOFOV (BIKTARVY) 50-200-25 MG TABLET PO SCH (11:08)
[2021-10-14] MEDS: SERTRALINE HCL 50 MG TABLET (FP) PO SCH (13:26)
[2021-10-14] MEDS: BUPRENORPHINE/NALOXONE 8 MG/2 MG FILM PACKET SL SCH ×2 (13:27→21:30)
[2021-10-14] MEDS: BENZTROPINE MESYLATE 1 MG TABLET PO SCH ×2 (13:28→21:28)
[2021-10-14] MEDS: CYPROHEPTADINE HCL 4 MG TABLET PO SCH (17:22)
[2021-10-14] MEDS: traZODone HCL 50 MG TABLET (FP) PO SCH (21:29)
[2021-10-14] MEDS: OLANZapine 10 MG TABLET PO SCH (21:29)
[2021-10-15] MEDS: BUPRENORPHINE/NALOXONE 8 MG/2 MG FILM PACKET SL SCH ×3 (06:35→21:53)
[2021-10-15] MEDS: CYPROHEPTADINE HCL 4 MG TABLET PO SCH ×3 (06:37→16:56)
[2021-10-15] MEDS: BICTEGRAV/EMTRICIT/TENOFOV (BIKTARVY) 50-200-25 MG TABLET PO SCH (07:11)
[2021-10-15] MEDS: BENZTROPINE MESYLATE 1 MG TABLET PO SCH ×3 (08:50→21:53)
[2021-10-15] MEDS: SERTRALINE HCL 50 MG TABLET (FP) PO SCH ×2 (08:50→10:11)
[2021-10-15] MEDS: PRENATAL VITAMINS W/ FOLIC ACID TABLET (FP) PO SCH ×2 (08:50→10:11)
[2021-10-15] MEDS: hydrOXYzine PAMOATE 25 MG CAPSULE (FP) PO PRN ×2 (08:53→14:19)
[2021-10-15] MEDS: NICOTINE 7 MG/24 HOURS TOPICAL PATCH TD SCH ×2 (08:54→10:11)
[2021-10-15] MEDS: OLANZapine 10 MG TABLET PO SCH (21:52)
[2021-10-15] MEDS: traZODone HCL 50 MG TABLET (FP) PO SCH (21:53)
[2021-10-15] MEDS: THIAMINE HCL 100 MG TABLET (FP) PO SCH (21:53)
[2021-10-16] MEDS: CYPROHEPTADINE HCL 4 MG TABLET PO SCH ×3 (06:20→17:52)
[2021-10-16] MEDS: BUPRENORPHINE/NALOXONE 8 MG/2 MG FILM PACKET SL SCH ×3 (06:20→21:54)
[2021-10-16] MEDS: BICTEGRAV/EMTRICIT/TENOFOV (BIKTARVY) 50-200-25 MG TABLET PO SCH (07:20)
[2021-10-16] MEDS: PRENATAL VITAMINS W/ FOLIC ACID TABLET (FP) PO SCH (10:28)
[2021-10-16] MEDS: BENZTROPINE MESYLATE 1 MG TABLET PO SCH ×2 (10:29→21:54)
[2021-10-16] MEDS: SERTRALINE HCL 50 MG TABLET (FP) PO SCH (10:29)
[2021-10-16] MEDS: NICOTINE 7 MG/24 HOURS TOPICAL PATCH TD SCH (10:29)
[2021-10-16] MEDS: hydrOXYzine PAMOATE 25 MG CAPSULE (FP) PO PRN (13:45)
[2021-10-16 21:54] LABS: EPI CELLS 9 /uL (0-25.1); HYALINE CASTS 0 /uL (0-3.1); URINE APPEARANCE CLEAR; URINE BACTERIA 179 /uL (0-1359); URINE BILIRUBIN NEGATIVE (NEGATIVE); URINE COLOR YELLOW; URINE GLUCOSE (UA) NEGATIVE (NEGATIVE); URINE KETONE NEGATIVE (NEGATIVE); URINE LEUK ESTERASE 2+ (NEGATIVE); URINE NITRITE NEGATIVE (NEGATIVE); URINE PROTEIN NEGATIVE (NEGATIVE); URINE RBC 3 /uL (0-23.9); URINE UROBILINOGEN 0.2 mg/dL (0.2-1.0); URINE WBC 35 /uL (0-25.8)
[2021-10-16] MEDS: traZODone HCL 50 MG TABLET (FP) PO SCH (21:54)
[2021-10-16] MEDS: OLANZapine 10 MG TABLET PO SCH (21:54)
[2021-10-16] MEDS: THIAMINE HCL 100 MG TABLET (FP) PO SCH (21:54)
[2021-10-17] MEDS: BUPRENORPHINE/NALOXONE 8 MG/2 MG FILM PACKET SL SCH (06:00)
[2021-10-17] MEDS: CYPROHEPTADINE HCL 4 MG TABLET PO SCH ×3 (06:01→17:01)
[2021-10-17] MEDS: NICOTINE 10 MG CARTRIDGE (INHALER) IH PRN (06:03)
[2021-10-17] MEDS: BICTEGRAV/EMTRICIT/TENOFOV (BIKTARVY) 50-200-25 MG TABLET PO SCH (07:33)
[2021-10-17] MEDS: SERTRALINE HCL 50 MG TABLET (FP) PO SCH (10:28)
[2021-10-17] MEDS: PRENATAL VITAMINS W/ FOLIC ACID TABLET (FP) PO SCH (10:28)
[2021-10-17] MEDS: NICOTINE 7 MG/24 HOURS TOPICAL PATCH TD SCH (10:29)
[2021-10-17] MEDS: amLODIPine BESYLATE 5 MG TABLET (FP) PO SCH (10:31)
[2021-10-17] MEDS: BENZTROPINE MESYLATE 1 MG TABLET PO SCH ×2 (12:08→21:44)
[2021-10-17] MEDS: BENZOCAINE 20 % GEL TUBE MM PRN (12:09)
[2021-10-17 16:49] LABS: SARS-CoV-2 NAA Not Detected
[2021-10-17] MEDS ORDERED: BUPRENORPHINE/NALOXONE 8 MG/2 MG FILM PACKET SL ONE (18:00)
[2021-10-17] MEDS: hydrOXYzine PAMOATE 25 MG CAPSULE (FP) PO PRN (21:44)
[2021-10-17] MEDS: THIAMINE HCL 100 MG TABLET (FP) PO SCH (21:44)
[2021-10-17] MEDS: OLANZapine 10 MG TABLET PO SCH (21:44)
[2021-10-17] MEDS: traZODone HCL 50 MG TABLET (FP) PO SCH (21:44)
[2021-10-18] MEDS: CYPROHEPTADINE HCL 4 MG TABLET PO SCH ×3 (06:08→17:33)
[2021-10-18] MEDS: BUPRENORPHINE/NALOXONE 12 MG-3 MG SL FILM PACKET SL SCH ×3 (06:08→10:03)
[2021-10-18] MEDS: NICOTINE 10 MG CARTRIDGE (INHALER) IH PRN (06:22)
[2021-10-18] MEDS: BICTEGRAV/EMTRICIT/TENOFOV (BIKTARVY) 50-200-25 MG TABLET PO SCH (09:00)
[2021-10-18] MEDS: NICOTINE 7 MG/24 HOURS TOPICAL PATCH TD SCH (09:56)
[2021-10-18] MEDS: BENZTROPINE MESYLATE 1 MG TABLET PO SCH ×2 (09:56→21:44)
[2021-10-18] MEDS: amLODIPine BESYLATE 5 MG TABLET (FP) PO SCH (09:57)
[2021-10-18] MEDS: PRENATAL VITAMINS W/ FOLIC ACID TABLET (FP) PO SCH (09:57)
[2021-10-18] MEDS: SERTRALINE HCL 50 MG TABLET (FP) PO SCH (09:59)
[2021-10-18] MEDS: traZODone HCL 50 MG TABLET (FP) PO SCH (21:45)
[2021-10-18] MEDS: OLANZapine 10 MG TABLET PO SCH (21:45)
[2021-10-18] MEDS: THIAMINE HCL 100 MG TABLET (FP) PO SCH (21:45)
[2021-10-18] MEDS: IBUPROFEN 400 MG TABLET (FP) PO PRN (21:46)
[2021-10-18] MEDS: LOPERAMIDE HCL 2 MG CAPSULE PO PRN (23:57)
[2021-10-18] MEDS: BENZOCAINE 20 % GEL TUBE MM PRN (23:57)
[2021-10-19] MEDS: LOPERAMIDE HCL 2 MG CAPSULE PO PRN (06:11)
[2021-10-19] MEDS: CYPROHEPTADINE HCL 4 MG TABLET PO SCH ×3 (06:11→17:12)
[2021-10-19] MEDS: BICTEGRAV/EMTRICIT/TENOFOV (BIKTARVY) 50-200-25 MG TABLET PO SCH (07:32)
[2021-10-19] MEDS: SERTRALINE HCL 50 MG TABLET (FP) PO SCH (10:22)
[2021-10-19] MEDS: amLODIPine BESYLATE 5 MG TABLET (FP) PO SCH (10:22)
[2021-10-19] MEDS: PRENATAL VITAMINS W/ FOLIC ACID TABLET (FP) PO SCH (10:23)
[2021-10-19] MEDS: NICOTINE 7 MG/24 HOURS TOPICAL PATCH TD SCH (10:23)
[2021-10-19] MEDS: BUPRENORPHINE/NALOXONE 12 MG-3 MG SL FILM PACKET SL SCH (10:23)
[2021-10-19] MEDS: BENZTROPINE MESYLATE 1 MG TABLET PO SCH ×2 (10:25→21:36)
[2021-10-19] MEDS: HYDROCORTISONE 2.5% TOPICAL CREAM 30 GM TUBE TP SCH ×2 (11:21→23:47)
[2021-10-19] MEDS: IBUPROFEN 400 MG TABLET (FP) PO PRN (13:52)
[2021-10-19] MEDS: hydrOXYzine PAMOATE 25 MG CAPSULE (FP) PO PRN (21:36)
[2021-10-19] MEDS: traZODone HCL 50 MG TABLET (FP) PO SCH (21:37)
[2021-10-19] MEDS: OLANZapine 10 MG TABLET PO SCH (21:37)
[2021-10-19] MEDS: THIAMINE HCL 100 MG TABLET (FP) PO SCH (21:37)
[2021-10-20] MEDS: CYPROHEPTADINE HCL 4 MG TABLET PO SCH ×3 (06:34→17:15)
[2021-10-20] MEDS: BICTEGRAV/EMTRICIT/TENOFOV (BIKTARVY) 50-200-25 MG TABLET PO SCH (07:06)
[2021-10-20] MEDS: SERTRALINE HCL 50 MG TABLET (FP) PO SCH (10:23)
[2021-10-20] MEDS: HYDROCORTISONE 2.5% TOPICAL CREAM 30 GM TUBE TP SCH ×2 (10:24→21:28)
[2021-10-20] MEDS: amLODIPine BESYLATE 5 MG TABLET (FP) PO SCH (10:24)
[2021-10-20] MEDS: BENZTROPINE MESYLATE 1 MG TABLET PO SCH ×2 (10:24→21:29)
[2021-10-20] MEDS: NICOTINE 7 MG/24 HOURS TOPICAL PATCH TD SCH (10:25)
[2021-10-20] MEDS: PRENATAL VITAMINS W/ FOLIC ACID TABLET (FP) PO SCH (10:26)
[2021-10-20] MEDS: BUPRENORPHINE/NALOXONE 12 MG-3 MG SL FILM PACKET SL SCH (10:26)
[2021-10-20] MEDS: hydrOXYzine PAMOATE 25 MG CAPSULE (FP) PO PRN (21:29)
[2021-10-20] MEDS: traZODone HCL 50 MG TABLET (FP) PO SCH (21:29)
[2021-10-20] MEDS: OLANZapine 10 MG TABLET PO SCH (21:29)
[2021-10-20] MEDS: THIAMINE HCL 100 MG TABLET (FP) PO SCH (21:30)
[2021-10-21] MEDS: CYPROHEPTADINE HCL 4 MG TABLET PO SCH ×3 (06:19→17:13)
[2021-10-21] MEDS: BICTEGRAV/EMTRICIT/TENOFOV (BIKTARVY) 50-200-25 MG TABLET PO SCH (08:40)
[2021-10-21] MEDS: NICOTINE 7 MG/24 HOURS TOPICAL PATCH TD SCH (10:56)
[2021-10-21] MEDS: HYDROCORTISONE 2.5% TOPICAL CREAM 30 GM TUBE TP SCH ×2 (10:56→21:43)
[2021-10-21] MEDS: BENZTROPINE MESYLATE 1 MG TABLET PO SCH (10:57)
[2021-10-21] MEDS: SERTRALINE HCL 50 MG TABLET (FP) PO SCH (10:57)
[2021-10-21] MEDS: BUPRENORPHINE/NALOXONE 12 MG-3 MG SL FILM PACKET SL SCH (10:57)
[2021-10-21] MEDS: amLODIPine BESYLATE 5 MG TABLET (FP) PO SCH (10:59)
[2021-10-21] MEDS: PRENATAL VITAMINS W/ FOLIC ACID TABLET (FP) PO SCH (11:00)
[2021-10-21] MEDS: THIAMINE HCL 100 MG TABLET (FP) PO SCH (21:42)
[2021-10-21] MEDS: BENZTROPINE MESYLATE 1 MG TABLET PO PRN (21:42)
[2021-10-21] MEDS: OLANZapine 10 MG TABLET PO SCH (21:42)
[2021-10-21] MEDS: hydrOXYzine PAMOATE 25 MG CAPSULE (FP) PO PRN (21:42)
[2021-10-21] MEDS: traZODone HCL 50 MG TABLET (FP) PO SCH (21:42)
[2021-10-22] MEDS: CYPROHEPTADINE HCL 4 MG TABLET PO SCH ×3 (06:30→16:47)
[2021-10-22] MEDS: BUPRENORPHINE/NALOXONE 12 MG-3 MG SL FILM PACKET SL SCH (06:30)
[2021-10-22] MEDS: amLODIPine BESYLATE 5 MG TABLET (FP) PO SCH (09:05)
[2021-10-22] MEDS: BICTEGRAV/EMTRICIT/TENOFOV (BIKTARVY) 50-200-25 MG TABLET PO SCH (09:05)
[2021-10-22] MEDS: SERTRALINE HCL 50 MG TABLET (FP) PO SCH (09:05)
[2021-10-22] MEDS: HYDROCORTISONE 2.5% TOPICAL CREAM 30 GM TUBE TP SCH ×2 (09:06→22:21)
[2021-10-22] MEDS: PRENATAL VITAMINS W/ FOLIC ACID TABLET (FP) PO SCH (09:07)
[2021-10-22] MEDS: NICOTINE 7 MG/24 HOURS TOPICAL PATCH TD SCH (09:07)
[2021-10-22] MEDS: NICOTINE 10 MG CARTRIDGE (INHALER) IH PRN (09:09)
[2021-10-22] MEDS: traZODone HCL 50 MG TABLET (FP) PO SCH (22:21)
[2021-10-22] MEDS: OLANZapine 10 MG TABLET PO SCH (22:21)
[2021-10-22] MEDS: hydrOXYzine PAMOATE 25 MG CAPSULE (FP) PO PRN (22:22)
[2021-10-22] MEDS: THIAMINE HCL 100 MG TABLET (FP) PO SCH (22:22)
[2021-10-23] MEDS: BUPRENORPHINE/NALOXONE 12 MG-3 MG SL FILM PACKET SL SCH (06:18)
[2021-10-23] MEDS: CYPROHEPTADINE HCL 4 MG TABLET PO SCH ×3 (06:18→17:34)
[2021-10-23] MEDS: SERTRALINE HCL 50 MG TABLET (FP) PO SCH (10:50)
[2021-10-23] MEDS: PRENATAL VITAMINS W/ FOLIC ACID TABLET (FP) PO SCH (10:50)
[2021-10-23] MEDS: amLODIPine BESYLATE 5 MG TABLET (FP) PO SCH (10:51)
[2021-10-23] MEDS: HYDROCORTISONE 2.5% TOPICAL CREAM 30 GM TUBE TP SCH ×2 (10:51→21:42)
[2021-10-23] MEDS: NICOTINE 7 MG/24 HOURS TOPICAL PATCH TD SCH (10:51)
[2021-10-23] MEDS: BICTEGRAV/EMTRICIT/TENOFOV (BIKTARVY) 50-200-25 MG TABLET PO SCH (10:52)
[2021-10-23] MEDS: THIAMINE HCL 100 MG TABLET (FP) PO SCH (21:42)
[2021-10-23] MEDS: traZODone HCL 50 MG TABLET (FP) PO SCH (21:42)
[2021-10-23] MEDS: OLANZapine 10 MG TABLET PO SCH (21:43)
[2021-10-24] MEDS: BUPRENORPHINE/NALOXONE 12 MG-3 MG SL FILM PACKET SL SCH (06:47)
[2021-10-24] MEDS: CYPROHEPTADINE HCL 4 MG TABLET PO SCH ×3 (06:48→16:55)
[2021-10-24] MEDS: BICTEGRAV/EMTRICIT/TENOFOV (BIKTARVY) 50-200-25 MG TABLET PO SCH (07:42)
[2021-10-24] MEDS: NICOTINE 7 MG/24 HOURS TOPICAL PATCH TD SCH (10:30)
[2021-10-24] MEDS: PRENATAL VITAMINS W/ FOLIC ACID TABLET (FP) PO SCH (10:30)
[2021-10-24] MEDS: HYDROCORTISONE 2.5% TOPICAL CREAM 30 GM TUBE TP SCH ×2 (10:30→21:13)
[2021-10-24] MEDS: amLODIPine BESYLATE 5 MG TABLET (FP) PO SCH (10:30)
[2021-10-24] MEDS: SERTRALINE HCL 50 MG TABLET (FP) PO SCH (10:30)
[2021-10-24] MEDS: NICOTINE 10 MG CARTRIDGE (INHALER) IH PRN (17:40)
[2021-10-24] MEDS: BENZTROPINE MESYLATE 1 MG TABLET PO PRN (21:13)
[2021-10-24] MEDS: OLANZapine 10 MG TABLET PO SCH (21:13)
[2021-10-24] MEDS: THIAMINE HCL 100 MG TABLET (FP) PO SCH (21:14)
[2021-10-24] MEDS: traZODone HCL 50 MG TABLET (FP) PO SCH (21:14)
[2021-10-24] MEDS: hydrOXYzine PAMOATE 25 MG CAPSULE (FP) PO PRN (21:14)
[2021-10-25] MEDS: BUPRENORPHINE/NALOXONE 12 MG-3 MG SL FILM PACKET SL SCH (06:36)
[2021-10-25] MEDS: CYPROHEPTADINE HCL 4 MG TABLET PO SCH ×3 (06:38→17:11)
[2021-10-25] MEDS: BICTEGRAV/EMTRICIT/TENOFOV (BIKTARVY) 50-200-25 MG TABLET PO SCH (07:54)
[2021-10-25] MEDS: HYDROCORTISONE 2.5% TOPICAL CREAM 30 GM TUBE TP SCH ×2 (10:29→21:33)
[2021-10-25] MEDS: NICOTINE 7 MG/24 HOURS TOPICAL PATCH TD SCH (10:29)
[2021-10-25] MEDS: SERTRALINE HCL 50 MG TABLET (FP) PO SCH (10:29)
[2021-10-25] MEDS: PRENATAL VITAMINS W/ FOLIC ACID TABLET (FP) PO SCH (10:29)
[2021-10-25] MEDS: amLODIPine BESYLATE 5 MG TABLET (FP) PO SCH (10:30)
[2021-10-25] MEDS: NICOTINE 10 MG CARTRIDGE (INHALER) IH PRN (15:38)
[2021-10-25] MEDS: OLANZapine 10 MG TABLET PO SCH (21:33)
[2021-10-25] MEDS: THIAMINE HCL 100 MG TABLET (FP) PO SCH (21:33)
[2021-10-25] MEDS: traZODone HCL 50 MG TABLET (FP) PO SCH (21:33)
[2021-10-26] MEDS: BUPRENORPHINE/NALOXONE 12 MG-3 MG SL FILM PACKET SL SCH (06:06)
[2021-10-26] MEDS: CYPROHEPTADINE HCL 4 MG TABLET PO SCH ×3 (06:06→17:25)
[2021-10-26] MEDS: NICOTINE 10 MG CARTRIDGE (INHALER) IH PRN ×2 (06:07→21:18)
[2021-10-26] MEDS: BICTEGRAV/EMTRICIT/TENOFOV (BIKTARVY) 50-200-25 MG TABLET PO SCH (08:05)
[2021-10-26] MEDS: PRENATAL VITAMINS W/ FOLIC ACID TABLET (FP) PO SCH (10:11)
[2021-10-26] MEDS: NICOTINE 7 MG/24 HOURS TOPICAL PATCH TD SCH (10:11)
[2021-10-26] MEDS: SERTRALINE HCL 50 MG TABLET (FP) PO SCH (10:11)
[2021-10-26] MEDS: HYDROCORTISONE 2.5% TOPICAL CREAM 30 GM TUBE TP SCH ×2 (10:11→21:19)
[2021-10-26] MEDS: amLODIPine BESYLATE 5 MG TABLET (FP) PO SCH (10:11)
[2021-10-26] MEDS: traZODone HCL 50 MG TABLET (FP) PO SCH (21:17)
[2021-10-26] MEDS: OLANZapine 10 MG TABLET PO SCH (21:17)
[2021-10-26] MEDS: THIAMINE HCL 100 MG TABLET (FP) PO SCH (21:17)
[2021-10-27] MEDS: CYPROHEPTADINE HCL 4 MG TABLET PO SCH (06:02)
[2021-10-27] MEDS: BUPRENORPHINE/NALOXONE 12 MG-3 MG SL FILM PACKET SL SCH (06:03)
[2021-10-27 07:35] VITALS: BP 133/78; PULSE 102; TEMP 98.4
[2021-10-27] MEDS: hydrOXYzine PAMOATE 25 MG CAPSULE (FP) PO PRN (10:13)
[2021-10-27] MEDS: SERTRALINE HCL 50 MG TABLET (FP) PO SCH (10:15)
[2021-10-27] MEDS: HYDROCORTISONE 2.5% TOPICAL CREAM 30 GM TUBE TP SCH (10:15)
[2021-10-27] MEDS: amLODIPine BESYLATE 5 MG TABLET (FP) PO SCH (10:15)
[2021-10-27] MEDS: BICTEGRAV/EMTRICIT/TENOFOV (BIKTARVY) 50-200-25 MG TABLET PO SCH (10:15)
[2021-10-27] MEDS: PRENATAL VITAMINS W/ FOLIC ACID TABLET (FP) PO SCH (10:16)
[2021-10-27] MEDS: NICOTINE 7 MG/24 HOURS TOPICAL PATCH TD SCH (10:16)
== END 2021-10-27 10:15 | disposition home or self-care (01) | DRG 895 ==
LOC: YASAS 16:36 → Y5N 10-14 01:25
PROVIDERS: ADMIT Allergy & Immunology; ATTEND Allergy & Immunology
PROC: HZ42ZZZ Group Counseling for Substance Abuse Treatment, Cognitive-Behavioral (ICD-10-PCS; principal; 2021-10-14)
DX: F11.20 Opioid dependence, uncomplicated (principal); F14.20 Cocaine dependence, uncomplicated; F19.280 Other psychoactive substance dependence with psychoactive substance-induced anxiety disorder; F19.282 Other psychoactive substance dependence with psychoactive substance-induced sleep disorder; F17.210 Nicotine dependence, cigarettes, uncomplicated; F41.0 Panic disorder [episodic paroxysmal anxiety]; F41.9 Anxiety disorder, unspecified; F32.9 Major depressive disorder, single episode, unspecified; F43.10 Post-traumatic stress disorder, unspecified; Z21 Asymptomatic human immunodeficiency virus [HIV] infection status; I10 Essential (primary) hypertension; K64.9 Unspecified hemorrhoids; K08.89 Other specified disorders of teeth and supporting structures; M54.50 Low back pain, unspecified; G89.29 Other chronic pain; Z62.810 Personal history of physical and sexual abuse in childhood; R63.4 Abnormal weight loss; Z68.20 Body mass index [BMI] 20.0-20.9, adult; Z86.73 Personal history of transient ischemic attack (TIA), and cerebral infarction without residual deficits; Z86.2 Personal history of diseases of the blood and blood-forming organs and certain disorders involving the immune mechanism
CPT/HCPCS: 36415; 80053; 81003; 85027; 86780; 86803; 87811; C9803; U0003; U0005

== ENCOUNTER 2023-09-21 12:13 | Inpatient (IN) | payer OTHER ==
[2023-09-21 14:15] VITALS: BMI 18.6
[2023-09-21] MEDS ORDERED: POLYETHYLENE GLYCOL (HEALTHYLAX) 3350 17 GM PACKET PO PRN (15:14)
[2023-09-21] MEDS ORDERED: ONDANSETRON *ODT* 4 MG TABLET SL PRN (15:14)
[2023-09-21] MEDS ORDERED: guaiFENesin 600 MG TABLET.ER (FP) PO PRN (15:14)
[2023-09-21] MEDS ORDERED: DICYCLOMINE HCL 10 MG CAPSULE PO PRN (15:14)
[2023-09-21] MEDS ORDERED: NALOXONE HCL 0.4 MG/ML VIAL IM PRN (15:14)
[2023-09-21] MEDS ORDERED: BISMUTH SUBSALICYLATE 262 MG/15 ML BTL PO PRN (15:14)
[2023-09-21] MEDS ORDERED: BUPRENORPHINE HCL 150 MCG, BUPRENORPHINE HCL 75 MCG BC ONE (15:14)
[2023-09-21] MEDS ORDERED: BUPRENORPHINE HCL 150 MCG, BUPRENORPHINE HCL 75 MCG BC PRN (15:14)
[2023-09-21] MEDS ORDERED: LOPERAMIDE HCL 2 MG CAPSULE PO PRN (15:14)
[2023-09-21] MEDS ORDERED: MAGNESIUM HYDROX 2400MG/30ML ORAL SUSPENSION 30 ML CUP PO PRN (15:14)
[2023-09-21] MEDS ORDERED: BENZOCAINE/MENTHOL (CHLORASEPTIC ) LOZENGE MM PRN (15:14)
[2023-09-21] MEDS ORDERED: cloNIDine HCL 0.1 MG TABLET PO ONE (15:14)
[2023-09-21] MEDS ORDERED: IBUPROFEN 400 MG TABLET (FP) PO PRN (15:14)
[2023-09-21] MEDS ORDERED: BENZONATATE 200 MG CAPSULE PO PRN (15:14)
[2023-09-21] MEDS ORDERED: NALOXONE HCL (KLOXXADO) 8 MG SPRAY NS PRN (15:14)
[2023-09-21] MEDS ORDERED: MAG HYDROX/AL HYDROX/SIMETH 30 ML UNIT-DOSE CUP PO PRN (15:14)
[2023-09-21] MEDS: NICOTINE 14 MG/24 HOURS TOPICAL PATCH TD SCH (16:37)
[2023-09-21] MEDS: PRENATAL VITAMINS W/ FOLIC ACID TABLET (FP) PO SCH (16:37)
[2023-09-21] MEDS ORDERED: BUPRENORPHINE HCL 150 MCG FILM BC ONE (16:47)
[2023-09-21] MEDS ORDERED: NICOTINE 14 MG/24 HOURS TOPICAL PATCH TD ONE (16:48)
[2023-09-21] MEDS ORDERED: PRENATAL VITAMINS W/ FOLIC ACID TABLET (FP) PO ONE (16:48)
[2023-09-21] MEDS ORDERED: BUPRENORPHINE HCL 75 MCG FILM BC ONE (16:48)
[2023-09-21] MEDS ORDERED: cloNIDine HCL 0.1 MG TABLET ONE (16:48)
[2023-09-21] MEDS: PREGABALIN 100 MG CAPSULE PO SCH (22:46)
[2023-09-21] MEDS: hydrOXYzine PAMOATE 25 MG CAPSULE (FP) PO PRN (22:49)
[2023-09-21] MEDS: THIAMINE HCL 100 MG TABLET (FP) PO SCH (22:49)
[2023-09-21] MEDS: MELATONIN 5 MG TABLETS PO SCH (22:49)
[2023-09-21] MEDS: METHOCARBAMOL 500 MG TABLET PO PRN (22:49)
[2023-09-21] MEDS: CYPROHEPTADINE HCL 4 MG TABLET PO SCH (22:52)
[2023-09-22] MEDS ORDERED: BUPRENORPHINE HCL 150 MCG, BUPRENORPHINE HCL 75 MCG BC PRN
[2023-09-22] MEDS: CYPROHEPTADINE HCL 4 MG TABLET PO SCH ×3 (05:54→22:57)
[2023-09-22] MEDS: BUPRENORPHINE HCL 150 MCG, BUPRENORPHINE HCL 75 MCG BC SCH ×2 (05:55→17:32)
[2023-09-22] MEDS: cloNIDine HCL 0.1 MG TABLET PO PRN ×3 (06:11→21:07)
[2023-09-22] MEDS: hydrOXYzine PAMOATE 25 MG CAPSULE (FP) PO PRN (06:12)
[2023-09-22] MEDS: BICTEGRAV/EMTRICIT/TENOFOV (BIKTARVY) 50-200-25 MG TABLET PO SCH (07:16)
[2023-09-22] MEDS: NICOTINE 14 MG/24 HOURS TOPICAL PATCH TD SCH (10:16)
[2023-09-22] MEDS: PRENATAL VITAMINS W/ FOLIC ACID TABLET (FP) PO SCH (10:16)
[2023-09-22] MEDS: PREGABALIN 100 MG CAPSULE PO SCH ×2 (10:16→22:57)
[2023-09-22] MEDS: TIOTROPIUM BROMIDE 2.5 MCG (SPIRIVA) RESPIMAT INHALER IH SCH (10:19)
[2023-09-22] MEDS: METHOCARBAMOL 500 MG TABLET PO PRN (10:20)
[2023-09-22] MEDS: FLUoxetine HCL 20 MG CAPSULE PO SCH (10:40)
[2023-09-22] MEDS: RITONAVIR 100 MG TABLET PO SCH (10:51)
[2023-09-22 11:22] LABS: HEMATOCRIT 40.3 % (32.4-45.2); HEMOGLOBIN 13.7 GM/dL (10.7-15.3); MCH 32.4 pg (25.7-33.7); MCHC 34.1 g/dl (32.0-36.0); MEAN CELL VOLUME 94.9 fl (80-96); MEAN PLT VOLUME 9.6 fl (7.5-11.1); PLATELET COUNT 229 10^3/uL (134-434); RBC 4.24 M/mm3 (3.60-5.2); RDW 15.2 % (11.6-15.6)
[2023-09-22 11:23] LABS: WHITE BLOOD COUNT 9.5 K/mm3 (4.0-10.0)
[2023-09-22 11:46] LABS: POTASSIUM 3.7 mmol/L (3.5-5.1)
[2023-09-22 11:51] LABS: BLOOD UREA NITROGEN 8.1 mg/dL (7-18); CALCIUM 8.9 mg/dL (8.5-10.1)
[2023-09-22 11:52] LABS: ALBUMIN 3.3 g/dl (3.4-5.0)
[2023-09-22 11:55] LABS: CREATININE 0.8 mg/dL (0.55-1.3)
[2023-09-22 11:56] LABS: BILIRUBIN,TOTAL 0.8 mg/dL (0.2-1); TOT PROT 6.9 g/dl (6.4-8.2)
[2023-09-22] MEDS: diazePAM 5 MG TABLET PO PRN ×2 (13:16→19:20)
[2023-09-22] MEDS: PANTOPRAZOLE 40 MG TABLET PO SCH (17:32)
[2023-09-22] MEDS: amLODIPine BESYLATE 10 MG TABLET (FP) PO SCH (19:29)
[2023-09-22] MEDS: MELATONIN 5 MG TABLETS PO SCH (22:57)
[2023-09-22] MEDS: THIAMINE HCL 100 MG TABLET (FP) PO SCH (22:57)
[2023-09-22] MEDS: MIRTAZAPINE 15 MG TABLET (FP) PO SCH (22:57)
[2023-09-23] MEDS: CYPROHEPTADINE HCL 4 MG TABLET PO SCH ×3 (06:10→22:32)
[2023-09-23] MEDS: BUPRENORPHINE HCL 450 MCG FILM BC SCH ×2 (06:11→17:18)
[2023-09-23] MEDS: diazePAM 5 MG TABLET PO PRN (07:03)
[2023-09-23] MEDS: BICTEGRAV/EMTRICIT/TENOFOV (BIKTARVY) 50-200-25 MG TABLET PO SCH (07:08)
[2023-09-23] MEDS: PREGABALIN 100 MG CAPSULE PO SCH (09:58)
[2023-09-23] MEDS: PANTOPRAZOLE 40 MG TABLET PO SCH (09:58)
[2023-09-23] MEDS: PRENATAL VITAMINS W/ FOLIC ACID TABLET (FP) PO SCH (09:58)
[2023-09-23] MEDS: FLUoxetine HCL 20 MG CAPSULE PO SCH (09:58)
[2023-09-23] MEDS: NICOTINE 14 MG/24 HOURS TOPICAL PATCH TD SCH (10:00)
[2023-09-23] MEDS: RITONAVIR 100 MG TABLET PO SCH (10:00)
[2023-09-23] MEDS: amLODIPine BESYLATE 10 MG TABLET (FP) PO SCH (10:01)
[2023-09-23] MEDS: TIOTROPIUM BROMIDE 2.5 MCG (SPIRIVA) RESPIMAT INHALER IH SCH (10:02)
[2023-09-23] MEDS: METHOCARBAMOL 500 MG TABLET PO PRN ×2 (11:55→19:20)
[2023-09-23] MEDS ORDERED: amLODIPine BESYLATE 10 MG TABLET (FP) PO ONE (13:12)
[2023-09-23] MEDS: hydrOXYzine PAMOATE 25 MG CAPSULE (FP) PO PRN ×2 (13:32→22:32)
[2023-09-23] MEDS: ACETAMINOPHEN 325 MG TABLET (FP) PO PRN (17:17)
[2023-09-23] MEDS: LIDOCAINE 4% PATCH TP SCH (19:19)
[2023-09-23] MEDS: MIRTAZAPINE 15 MG TABLET (FP) PO SCH (22:32)
[2023-09-23] MEDS: THIAMINE HCL 100 MG TABLET (FP) PO SCH (22:32)
[2023-09-23] MEDS: MELATONIN 5 MG TABLETS PO SCH (22:32)
[2023-09-23] MEDS: IBUPROFEN 600 MG TABLET (FP) PO PRN (22:33)
[2023-09-23] MEDS: LIDOCAINE PATCH REMOVAL MC SCH (22:34)
[2023-09-24] MEDS: ACETAMINOPHEN 325 MG TABLET (FP) PO PRN (00:04)
[2023-09-24] MEDS: METHOCARBAMOL 500 MG TABLET PO PRN ×2 (03:00→10:47)
[2023-09-24] MEDS: hydrOXYzine PAMOATE 25 MG CAPSULE (FP) PO PRN ×2 (05:38→10:47)
[2023-09-24] MEDS: CYPROHEPTADINE HCL 4 MG TABLET PO SCH ×3 (05:38→21:49)
[2023-09-24] MEDS ORDERED: amLODIPine BESYLATE 10 MG TABLET (FP) PO ONE (06:19)
[2023-09-24] MEDS: BICTEGRAV/EMTRICIT/TENOFOV (BIKTARVY) 50-200-25 MG TABLET PO SCH (07:58)
[2023-09-24] MEDS ORDERED: BUPRENORPHINE/NALOXONE 4 MG/1 MG FILM PACKET SL ONE (08:15)
[2023-09-24] MEDS ORDERED: TRIMETHOBENZAMIDE HCL 200MG/2ML INJ IM ONE (09:50)
[2023-09-24] MEDS: PRENATAL VITAMINS W/ FOLIC ACID TABLET (FP) PO SCH (10:46)
[2023-09-24] MEDS: LIDOCAINE 4% PATCH TP SCH (10:47)
[2023-09-24] MEDS: PANTOPRAZOLE 40 MG TABLET PO SCH (10:47)
[2023-09-24] MEDS: NICOTINE 14 MG/24 HOURS TOPICAL PATCH TD SCH (10:47)
[2023-09-24] MEDS: FLUoxetine HCL 20 MG CAPSULE PO SCH (10:47)
[2023-09-24] MEDS: amLODIPine BESYLATE 10 MG TABLET (FP) PO SCH (10:47)
[2023-09-24] MEDS: TIOTROPIUM BROMIDE 2.5 MCG (SPIRIVA) RESPIMAT INHALER IH SCH (11:20)
[2023-09-24] MEDS ORDERED: METOPROLOL TARTRATE 25 MG TABLET (FP) PO ONE (12:41)
[2023-09-24] MEDS ORDERED: diazePAM 5 MG TABLET PO ONE (12:42)
[2023-09-24] MEDS: BUPRENORPHINE/NALOXONE 4 MG/1 MG FILM PACKET SL SCH ×2 (15:30→21:48)
[2023-09-24] MEDS: IBUPROFEN 600 MG TABLET (FP) PO PRN (18:44)
[2023-09-24] MEDS ORDERED: BUPRENORPHINE/NALOXONE 8 MG/2 MG FILM PACKET SL ONE (21:10)
[2023-09-24] MEDS ORDERED: diazePAM 5 MG TABLET PO PRN (21:11)
[2023-09-24] MEDS: MIRTAZAPINE 15 MG TABLET (FP) PO SCH (21:49)
[2023-09-24] MEDS: MELATONIN 5 MG TABLETS PO SCH (21:49)
[2023-09-24] MEDS: THIAMINE HCL 100 MG TABLET (FP) PO SCH (21:49)
[2023-09-24] MEDS: cloNIDine HCL 0.1 MG TABLET PO PRN (21:49)
[2023-09-24] MEDS: LIDOCAINE PATCH REMOVAL MC SCH (23:17)
[2023-09-25] MEDS: cloNIDine HCL 0.1 MG TABLET PO PRN (05:39)
[2023-09-25] MEDS: CYPROHEPTADINE HCL 4 MG TABLET PO SCH ×2 (06:26→13:01)
[2023-09-25] MEDS: BICTEGRAV/EMTRICIT/TENOFOV (BIKTARVY) 50-200-25 MG TABLET PO SCH (07:21)
[2023-09-25] MEDS: NICOTINE 14 MG/24 HOURS TOPICAL PATCH TD SCH (10:05)
[2023-09-25] MEDS: PRENATAL VITAMINS W/ FOLIC ACID TABLET (FP) PO SCH (10:05)
[2023-09-25] MEDS: FLUoxetine HCL 20 MG CAPSULE PO SCH (10:06)
[2023-09-25] MEDS: LIDOCAINE 4% PATCH TP SCH (10:06)
[2023-09-25] MEDS: amLODIPine BESYLATE 10 MG TABLET (FP) PO SCH (10:06)
[2023-09-25] MEDS: PANTOPRAZOLE 40 MG TABLET PO SCH (10:06)
[2023-09-25] MEDS: BUPRENORPHINE/NALOXONE 4 MG/1 MG FILM PACKET SL SCH (10:06)
[2023-09-25] MEDS: TIOTROPIUM BROMIDE 2.5 MCG (SPIRIVA) RESPIMAT INHALER IH SCH (10:07)
[2023-09-25 12:45] VITALS: BP 138/82; PULSE 86; RESP 18; TEMP 97.4
== END 2023-09-25 13:17 | disposition other institution (70) | DRG 897 ==
LOC: YASAS 12:13 → Y3N 16:40
PROVIDERS: ADMIT Allergy & Immunology; ATTEND Allergy & Immunology
PROC: HZ2ZZZZ Detoxification Services for Substance Abuse Treatment (ICD-10-PCS; principal; 2023-09-21)
DX: F11.23 Opioid dependence with withdrawal (principal); F19.280 Other psychoactive substance dependence with psychoactive substance-induced anxiety disorder; F19.282 Other psychoactive substance dependence with psychoactive substance-induced sleep disorder; F10.10 Alcohol abuse, uncomplicated; F19.24 Other psychoactive substance dependence with psychoactive substance-induced mood disorder; F32.9 Major depressive disorder, single episode, unspecified; F41.9 Anxiety disorder, unspecified; F43.10 Post-traumatic stress disorder, unspecified; Z21 Asymptomatic human immunodeficiency virus [HIV] infection status; I10 Essential (primary) hypertension; Z86.73 Personal history of transient ischemic attack (TIA), and cerebral infarction without residual deficits; Z86.2 Personal history of diseases of the blood and blood-forming organs and certain disorders involving the immune mechanism; Z88.8 Allergy status to other drugs, medicaments and biological substances
CPT/HCPCS: 36415; 80053; 81025; 85027; 86780; 87635; 93005; 93010; Q0162

== ENCOUNTER 2023-09-22 23:53 | Emergency (ER) | payer OTHER ==
[2023-09-23 00:19] VITALS: RESP 18; TEMP 98.3; BMI 19.6
[2023-09-23] MEDS ORDERED: amLODIPine BESYLATE 5 MG TABLET (FP) PO ONE (01:01)
[2023-09-23] MEDS ORDERED: amLODIPine BESYLATE 5 MG TABLET (FP) ONE (01:11)
[2023-09-23 01:19] VITALS: BP 124/59; PULSE 92
== END 2023-09-23 02:02 | disposition home or self-care (01) ==
LOC: JER 23:53
DX: Z00.00 Encounter for general adult medical examination without abnormal findings (principal)
CPT/HCPCS: 93005; 93010; 99283-25

== ENCOUNTER 2023-09-25 13:31 | Inpatient (IN) | payer OTHER ==
[2023-09-25] MEDS ORDERED: BENZOCAINE/MENTHOL (CHLORASEPTIC ) LOZENGE MM PRN (15:39)
[2023-09-25] MEDS ORDERED: BENZONATATE 200 MG CAPSULE PO PRN (15:39)
[2023-09-25] MEDS ORDERED: AMMONIUM LACTATE 12% LOTION 225 GM BOTTLE TP PRN (15:39)
[2023-09-25] MEDS ORDERED: NICOTINE POLACRILEX 2 MG GUM BUC PRN (15:39)
[2023-09-25] MEDS ORDERED: MAGNESIUM HYDROX 2400MG/30ML ORAL SUSPENSION 30 ML CUP PO PRN (15:39)
[2023-09-25] MEDS ORDERED: NALOXONE HCL 0.4 MG/ML VIAL IVPUSH PRN (15:39)
[2023-09-25] MEDS ORDERED: guaiFENesin 600 MG TABLET.ER (FP) PO PRN (15:39)
[2023-09-25] MEDS ORDERED: LOPERAMIDE HCL 2 MG CAPSULE PO PRN (15:39)
[2023-09-25] MEDS ORDERED: POLYETHYLENE GLYCOL (HEALTHYLAX) 3350 17 GM PACKET PO PRN (15:39)
[2023-09-25] MEDS ORDERED: NALOXONE HCL (KLOXXADO) 8 MG SPRAY NS PRN (15:39)
[2023-09-25] MEDS ORDERED: MAG HYDROX/AL HYDROX/SIMETH 30 ML UNIT-DOSE CUP PO PRN (15:39)
[2023-09-25] MEDS ORDERED: ACETAMINOPHEN 325 MG TABLET (FP) PO PRN (15:39)
[2023-09-25] MEDS ORDERED: diazePAM 5 MG TABLET PO PRN (15:49)
[2023-09-25] MEDS: cloNIDine HCL 0.1 MG TABLET PO ONE ×2 (16:51→16:53)
[2023-09-25] MEDS ORDERED: cloNIDine HCL 0.1 MG TABLET PO PRN (19:49)
[2023-09-25] MEDS: BUPRENORPHINE/NALOXONE 8 MG/2 MG FILM PACKET SL SCH (22:14)
[2023-09-25] MEDS: MELATONIN 5 MG TABLETS PO SCH (22:14)
[2023-09-25] MEDS: THIAMINE HCL 100 MG TABLET (FP) PO SCH (22:23)
[2023-09-25] MEDS: BUPRENORPHINE/NALOXONE 4 MG/1 MG FILM PACKET SL ONE (23:34)
[2023-09-26] MEDS: hydrOXYzine PAMOATE 25 MG CAPSULE (FP) PO PRN (07:35)
[2023-09-26] MEDS: BICTEGRAV/EMTRICIT/TENOFOV (BIKTARVY) 50-200-25 MG TABLET PO SCH (07:48)
[2023-09-26] MEDS ORDERED: BICTEGRAV/EMTRICIT/TENOFOV (BIKTARVY) 50-200-25 MG TABLET PO SCH (08:00)
[2023-09-26] MEDS ORDERED: BUPRENORPHINE 8 MG TAB.SUBL SL SCH (10:00)
[2023-09-26] MEDS: PRENATAL VITAMINS W/ FOLIC ACID TABLET (FP) PO SCH (10:02)
[2023-09-26] MEDS: TIOTROPIUM BROMIDE 2.5 MCG (SPIRIVA) RESPIMAT INHALER IH SCH (10:02)
[2023-09-26] MEDS: PANTOPRAZOLE 40 MG TABLET PO SCH (10:02)
[2023-09-26] MEDS: FLUoxetine HCL 20 MG CAPSULE PO SCH (10:04)
[2023-09-26] MEDS: BUPRENORPHINE/NALOXONE 8 MG/2 MG FILM PACKET SL SCH (14:45)
[2023-09-26] MEDS: MIRTAZAPINE 15 MG TABLET (FP) PO SCH (21:41)
[2023-09-27 11:08] LABS: BASO % 0.5 % (0-2.0); EOS % 0.2 % (0-4.5); HEMATOCRIT 43.5 % (32.4-45.2); HEMOGLOBIN 14.3 GM/dL (10.7-15.3); LYMPH % 46.6 % (8-40); MCH 31.3 pg (25.7-33.7); MCHC 32.8 g/dl (32.0-36.0); MEAN CELL VOLUME 95.6 fl (80-96); MEAN PLT VOLUME 9.6 fl (7.5-11.1); MONO % 11.7 % (3.8-10.2); PLATELET COUNT 222 10^3/uL (134-434); RBC 4.56 M/mm3 (3.60-5.2); WHITE BLOOD COUNT 9.3 K/mm3 (4.0-10.0)
[2023-09-27 11:43] LABS: POTASSIUM 4.5 mmol/L (3.5-5.1)
[2023-09-27 11:46] LABS: CALCIUM 9.2 mg/dL (8.5-10.1)
[2023-09-27 11:47] LABS: ALBUMIN 3.8 g/dl (3.4-5.0); BLOOD UREA NITROGEN 30.1 mg/dL (7-18); MAGNESIUM 2.1 mg/dL (1.8-2.4)
[2023-09-27 11:50] LABS: CREATININE 0.9 mg/dL (0.55-1.3)
[2023-09-27 11:52] LABS: BILIRUBIN,TOTAL 0.9 mg/dL (0.2-1); TOT PROT 7.3 g/dl (6.4-8.2)
[2023-09-27] MEDS: NICOTINE 14 MG/24 HOURS TOPICAL PATCH TD PRN (15:04)
[2023-09-27] MEDS: METHOCARBAMOL 500 MG TABLET PO PRN (21:16)
[2023-09-28] MEDS: NICOTINE 14 MG/24 HOURS TOPICAL PATCH TD SCH (10:02)
[2023-09-28] MEDS: IBUPROFEN 600 MG TABLET (FP) PO PRN (13:24)
[2023-09-28] MEDS: cloNIDine HCL 0.1 MG TABLET PO PRN (18:53)
[2023-10-02] MEDS: amLODIPine BESYLATE 2.5 MG TABLET (FP) PO SCH (09:33)
[2023-10-02] MEDS ORDERED: amLODIPine BESYLATE 2.5 MG TABLET (FP) PO SCH (10:00)
[2023-10-02] MEDS: BUPRENORPHINE/NALOXONE 8 MG/2 MG FILM PACKET SL SCH (21:21)
[2023-10-04] MEDS: BUPRENORPHINE/NALOXONE 8 MG/2 MG FILM PACKET SL SCH (10:30)
[2023-10-05] MEDS ORDERED: BUPRENORPHINE/NALOXONE 8 MG/2 MG FILM PACKET SL SCH (06:00)
[2023-10-07] MEDS: PETROLATUM, WHITE 30 GM TUBE TP SCH (10:06)
[2023-10-07] MEDS: LIDOCAINE 4% PATCH TP SCH (19:38)
[2023-10-07] MEDS: METHOCARBAMOL 500 MG TABLET PO PRN (21:25)
[2023-10-07] MEDS: LIDOCAINE PATCH REMOVAL MC SCH (23:08)
[2023-10-11] MEDS: IBUPROFEN 400 MG TABLET (FP) PO PRN (05:08)
[2023-10-15 06:52] VITALS: RESP 17; TEMP 97.7
[2023-10-15 09:09] VITALS: BP 127/82; PULSE 113
== END 2023-10-15 10:25 | disposition home or self-care (01) | DRG 895 ==
LOC: YASAS 13:31 → Y5N 13:36
PROVIDERS: ADMIT Allergy & Immunology; ATTEND Psychiatry & Neurology Pain Medicine
PROC: HZ42ZZZ Group Counseling for Substance Abuse Treatment, Cognitive-Behavioral (ICD-10-PCS; principal; 2023-09-25)
DX: F11.20 Opioid dependence, uncomplicated (principal); Z68.1 Body mass index [BMI] 19.9 or less, adult; F17.210 Nicotine dependence, cigarettes, uncomplicated; F41.9 Anxiety disorder, unspecified; F32.9 Major depressive disorder, single episode, unspecified; Z21 Asymptomatic human immunodeficiency virus [HIV] infection status; G47.00 Insomnia, unspecified; M54.50 Low back pain, unspecified; G89.29 Other chronic pain; R07.89 Other chest pain; R63.4 Abnormal weight loss; Z86.73 Personal history of transient ischemic attack (TIA), and cerebral infarction without residual deficits; Z88.8 Allergy status to other drugs, medicaments and biological substances
CPT/HCPCS: 0241U-QW; 36415; 71045-TC-FY; 80053; 82140; 82652; 83690; 83735; 84484; 85025; 85379; 85610; 85730; 86803; 93005; 93010; 99285-25; J0131

== ENCOUNTER 2023-10-07 13:28 | Emergency (ER) | payer OTHER ==
[2023-10-07 14:33] VITALS: BP 120/83; PULSE 93; RESP 18; TEMP 98.3
[2023-10-07] MEDS ORDERED: ACETAMINOPHEN INJECTION 100 ML IVPB ONE (15:01)
[2023-10-07] MEDS ORDERED: METHOCARBAMOL 500 MG TABLET ONE (15:01)
[2023-10-07] MEDS ORDERED: FAMOTIDINE 20 MG/50 ML IVPB 20 MG/50 ML MG IVPB ONE (15:02)
[2023-10-07] MEDS ORDERED: MAG HYDROX/AL HYDROX/SIMETH 30 ML UNIT-DOSE CUP ONE (15:02)
[2023-10-07 15:23] LABS: BASO % 0.9 % (0-2.0); EOS % 0.6 % (0-4.5); HEMATOCRIT 36.9 % (32.4-45.2); HEMOGLOBIN 12.3 GM/dL (10.7-15.3); LYMPH % 40.2 % (8-40); MCH 31.7 pg (25.7-33.7); MCHC 33.4 g/dl (32.0-36.0); MEAN CELL VOLUME 95.1 fl (80-96); MEAN PLT VOLUME 8.6 fl (7.5-11.1); MONO % 16.9 % (3.8-10.2); NEUT % 41.4 % (42.8-82.8); PLATELET COUNT 225 10^3/uL (134-434); RBC 3.88 M/mm3 (3.60-5.2); RDW 15.2 % (11.6-15.6); WHITE BLOOD COUNT 8.6 K/mm3 (4.0-10.0)
[2023-10-07 15:29] LABS: INR 0.9 (0.83-1.09); PROTHROMBIN TIME (PATIENT) 10.5 SEC (9.7-13.0)
[2023-10-07 15:32] LABS: ACTIVATED PTT 20.4 SECONDS (25.2-36.5)
[2023-10-07 15:38] LABS: POTASSIUM 4.5 mmol/L (3.5-5.1)
[2023-10-07 15:40] LABS: ALBUMIN 3.3 g/dl (3.4-5.0); CALCIUM 9.6 mg/dL (8.5-10.1); MAGNESIUM 1.8 mg/dL (1.8-2.4)
[2023-10-07 15:43] LABS: CREATININE 0.9 mg/dL (0.55-1.3)
[2023-10-07 15:45] LABS: BILIRUBIN,TOTAL 0.2 mg/dL (0.2-1); TOT PROT 6.8 g/dl (6.4-8.2)
[2023-10-07] MEDS: MAG HYDROX/AL HYDROX/SIMETH -MYLANTA- ORAL SUSPENSION PO ONE (15:49)
[2023-10-07] MEDS: ACETAMINOPHEN 1000 MG/100 ML BAG IVPB ONE (15:49)
[2023-10-07] MEDS: FAMOTIDINE 20 MG/50 ML IVPB 20 MG/50 ML MG IVPB ONE (15:50)
[2023-10-07] MEDS: METHOCARBAMOL 750 MG TAB PO ONE (15:50)
== END 2023-10-07 18:19 | disposition home or self-care (01) ==
LOC: JER 13:28
PROC: 3E033GC Introduction of Other Therapeutic Substance into Peripheral Vein, Percutaneous Approach (ICD-10-PCS; principal; 2023-10-07)
PROC: 3E033NZ Introduction of Analgesics, Hypnotics, Sedatives into Peripheral Vein, Percutaneous Approach (ICD-10-PCS; 2023-10-07)
DX: R07.81 Pleurodynia (principal); M62.838 Other muscle spasm; Z20.822 Contact with and (suspected) exposure to COVID-19
CPT/HCPCS: 0241U-QW; 36415; 71045-TC-FY; 80053; 83690; 83735; 84484; 85025; 85379; 85610; 85730; 93005; 93010; 99285-25; J0131